=== PATIENT | female | born 1965 | race Caucasian/White ===

== ENCOUNTER 2018-03-13 07:49 | Outpatient (CLI) | payer MEDICAID, SELFPAY ==
[2018-03-13 10:46] LABS: ALT 41 U/L (12-78); AST 36 U/L (15-37); Alkaline Phosphatase 64 U/L (46-116); Anion Gap 11.6 mmol/L (3-11); BUN 11 mg/dL (7-18); Bilirubin, Total 0.8 mg/dL (0.2-1.0); CO2 25.4 mmol/L (21.0-32.0); CREATININE 1.02 mg/dL (0.55-1.02); Calcium 9.5 mg/dL (8.5-10.1); Chloride 101 mmol/L (98-107); Estimated GFR 56.47 (mL/min/1.73m2); Glucose 160 mg/dL (70-100); Potassium 4.3 mmol/L (3.5-5.1); Sodium 138 mmol/L (136-145); Total Protein 7.6 g/dL (6.4-8.2); Vitamin B12 424 pg/mL (193-986)
[2018-03-13 11:10] LABS: Hemoglobin A1C 5.5 % (4.5-6.2)
== END 2018-03-13 08:09 ==
PROVIDERS: PCP Nurse Practitioner Family
DX: F43.10 Post-traumatic stress disorder, unspecified (principal); E53.8 Deficiency of other specified B group vitamins; R00.2 Palpitations; E03.9 Hypothyroidism, unspecified; R53.83 Other fatigue; I10 Essential (primary) hypertension; R74.8 Abnormal levels of other serum enzymes; F32.9 Major depressive disorder, single episode, unspecified; R41.3 Other amnesia; R55 Syncope and collapse
CPT/HCPCS: 36415; 80053; 82607; 83036; 84443

== ENCOUNTER 2018-05-09 09:20 | Emergency (ER) | payer MEDICAID, SELFPAY ==
[2018-05-09 09:24] VITALS: BP 122/51; PULSE 81; RESP 18; TEMP 36.7; O2SAT 95
--- NOTE | 2018-05-09 09:46 | W.ED.GENAD ---
Discharge Plan Disposition Patient Disposition: HOME Condition: Good Discharge Details Chief Complaint: RespSymp Clinical Impression: Sinusitis, acute Primary Care Provider: Griselda Collier ED Provider: Oziel Feng [place] Meds and New Rx's Prescriptions: New prednisone 20 mg tablet 40 mg PO DAILY Qty: 14 RF: 0 amoxicillin-pot clavulanate [Augmentin] 875-125 mg tablet 1 tab PO BID Qty: 20 RF: 0 No Action cholecalciferol (vitamin D3) 2,000 unit capsule 2,000 unit PO DAILY Qty: 90 RF: 3 allopurinol [Zyloprim] 300 mg tablet 300 mg PO DAILY Qty: 90 RF: 4 atenolol 25 mg tablet 25 mg PO DAILY Qty: 90 RF: 3 cyanocobalamin (vitamin B-12) 1,000 mcg/mL solution 1,000 mcg Sub-Q MONTHLY Qty: 10 RF: 0 Syringe 3cc/20Gx1 3 mL 20 gauge x 1 syringe 1 ea SQ monthly Qty: 1 RF: 0 omeprazole 40 mg capsule,delayed release(DR/EC) 40 mg PO DAILY Qty: 90 RF: 4 pravastatin 40 mg tablet 40 mg PO HS Qty: 90 RF: 0 verapamil 240 mg tablet extended release 240 mg PO DAILY Qty: 90 RF: 4 trazodone 100 mg tablet 100 mg PO HS PRNRF: 0 aspirin [Ecotrin Low Strength] 81 MG tablet,delayed release (DR/EC) 81 mg PO DAILY RF: 0 indomethacin 25 MG capsule 25 mg PO TID PRNQty: 30 RF: 0 quetiapine [Seroquel] 400 MG tablet 400 mg PO HS RF: 0 levothyroxine 25 mcg tablet 37.5 mcg PO DAILY Qty: 135 RF: 0 quetiapine [Seroquel] 100 mg tablet 50 mg PO BID RF: 0 sumatriptan succinate [Imitrex] 50 mg tablet 50 mg PO q 3 days prn Qty: 9 RF: 1 Discharge Instructions Instructions: Sinusitis (ED) Additional Instructions: Please take antihistamine at night. Antihistamines from OTC can be Claritine, Zyrtec, or Benadryl. Referrals: [facility] Emergency Dept. [Outside] - Return if symptoms worsen Medical Decision Making History and exam are consistent with acute sinusitis. Will prescribe Augmentin BID and Prednisone daily. Advised to use antihistamine of her choice at night and ibuprofen for pain and swelling. Return to ED if symptoms worsen otherwise with pcp. HPI General Date/Time Provider Initiated Documentation: 05/09/18 09:26. Limitations to Documentation: no limitations. Information obtained by: patient. History of Present Illness 52 year old F presents to the emergency department with the chief complaint of sinus infection, HPI Narrative: 52 y/o female here with c/o sinus pressure, R[place], swelling, facial and ear pain, and sleep disruption. Symptoms started two weeks ago and has progressively gotten worse. Denies fever, N/V/D, cp, or SOB. Symptoms seem to be worse at night. The pressure and pain in her ears is worse and now has intermittent dizziness. Related Data Home Medications Medication Instructions Recorded Confirmed aspirin [Ecotrin Low Strength] 81 mg PO DAILY tab-cap 08/05/12 05/09/18 indomethacin 25 mg PO TID PRN #30 cap 12/06/14 05/09/18 quetiapine [Seroquel] 400 mg PO HS 11/18/16 05/09/18 allopurinol 300 mg tablet 300 mg PO DAILY #90 tab-cap 02/24/18 04/08/18 atenolol 25 mg tablet 25 mg PO DAILY #90 tab-cap 02/24/18 05/09/18 cholecalciferol (vitamin D3) 2,000 2,000 unit PO DAILY #90 cap 02/24/18 05/09/18 unit capsule cyanocobalamin (vit B-12) 1,000 1,000 mcg SUB-Q MONTHLY #10 ml 02/24/18 05/09/18 mcg/mL injection solution omeprazole 40 mg capsule,delayed 40 mg PO DAILY #90 tab-cap 02/24/18 05/09/18 release pravastatin 40 mg tablet 40 mg PO HS #90 tab 02/24/18 05/09/18 syringe with needle 3 mL 20 gauge #1 syringe 02/24/18 05/09/18 x 1 verapamil ER (SR) 240 mg 240 mg PO DAILY #90 tab-cap 02/24/18 05/09/18 tablet,extended release levothyroxine 25 mcg tablet 37.5 mcg PO DAILY #135 tab-cap 04/07/18 05/09/18 quetiapine 100 mg tablet 50 mg PO BID tab 04/08/1818 trazodone 100 mg tablet 100 mg PO HS PRN tab 18 05/09/18 sumatriptan 50 mg tablet 50 mg PO q 3 days prn #9 tab-cap 18 05/09/18 amoxicillin-pot clavulanate 1 tab PO BID #20 tab 05/09/18 [Augmentin] prednisone 40 mg PO DAILY #14 tab 05/09/18 Previous Rx's Medication Instructions Recorded allopurinol 300 mg tablet 300 mg PO DAILY #90 tab-cap 02/24/18 atenolol 25 mg tablet 25 mg PO DAILY #90 tab-cap 02/24/18 cholecalciferol (vitamin D3) 2,000 2,000 unit PO DAILY #90 cap 02/24/18 unit capsule cyanocobalamin (vit B-12) 1,000 1,000 mcg SUB-Q MONTHLY #10 ml 02/24/18 mcg/mL injection solution omeprazole 40 mg capsule,delayed 40 mg PO DAILY #90 tab-cap 02/24/18 release pravastatin 40 mg tablet 40 mg PO HS #90 tab 02/24/18 syringe with needle 3 mL 20 gauge #1 syringe 02/24/18 x 1 verapamil ER (SR) 240 mg 240 mg PO DAILY #90 tab-cap 02/24/18 tablet,extended release levothyroxine 25 mcg tablet 37.5 mcg PO DAILY #135 tab-cap 04/07/18 sumatriptan 50 mg tablet 50 mg PO q 3 days prn #9 tab-cap 05/01/18 amoxicillin-pot clavulanate 1 tab PO BID #20 tab 05/09/18 [Augmentin] prednisone 40 mg PO DAILY #14 tab 05/09/18 Allergies Allergy/AdvReac Type Severity Reaction Status Date / Time codeine [Codeine] AdvReac HALLUCINATI Verified 05/09/18 09:27 ONS General Stated Complaint: RespSymp CHERIE: 4 Review of Systems Constitutional Reports headache(s) Eyes Reports other (swelling around eyes) ENT Reports dizziness, Reports otalgia, Reports facial pain, Reports headache(s), Reports epistaxis, Reports nasal congestion, Reports nasal discharge, Reports sinus pain, Reports sinus pressure and Reports sore throat Cardiovascular Reports system reviewed and no additional complaints, except as docu Respiratory Reports system reviewed and no additional complaints, except as docu Gastrointestinal Reports system reviewed and no additional complaints, except as [facility] Genitourinary Reports system reviewed and no additional complaints, except as [facility] Musculoskeletal Reports system reviewed and no additional complaints, except as [facility] Integumentary/Breasts Reports system reviewed and no additional complaints, except as [facility] Neurologic Reports dizziness and Reports headache(s) [facility] Social History household members: other details: 2 pets and animals: Yes pets and animals: cat(s) and dog(s) Smoking/Tobacco Use Status: Never alcohol intake: current alcohol intake frequency: a few times a month substance use type: does not use Exam Const General: cooperative, comfortable, no acute distress and other (bilateral allergic shiners and looks tired) Orientation: alert, awake and oriented x3 HENMT Head: atraumatic Ears: hearing grossly normal bilaterally, external ears normal and TM abnormal bulging, dull and with loss of landmarks General nose exam: external nose normal, no nasal discharge and mucous membranes and turbinates abnormal boggy and pale Face and sinus: sinus tenderness frontal, maxillary (with swelling) and other and tenderness bilaterally Mouth: oral mucosae normal and moist mucous membranes Throat: posterior oropharynx normal Eyes General: appearance abnormal, both eyes (puffiness around the eyes and lids. ) Alignment and Position: alignment normal Eyelids: eyelid abnormality Neck Neck: normal visual inspection, full ROM, no meningeal signs, supple and lymphadenopathy Resp Effort & Inspection: normal respiratory effort and able to speak in complete sentences Auscultation: clear to auscultation bilaterally Cardio Rate: regular rate Rhythm: regular rhythm Back/Spine/Pelvis Back: No back tenderness Cervical Spine: cervical ROM normal Thoracic/Lumbar Spine: thoraco-lumbar ROM normal Skin General skin exam: no rashes or lesions noted Neuro General: alert, awake, oriented x3 and gait normal Extrem General: full ROM and normal capillary refill Psych Appearance: grossly normal Mental Status: mental status grossly normal Speech and Movement: speech and movement normal Mood: congruent mood Affect: normal affect Attitude: cooperative Course Vital Signs Temperature 36.7 C 05/09/18 09:24 Pulse 81 05/09/18 09:24 Respiratory Rate 18 05/09/18 09:24 Blood Pressure 122/51 L 05/09/18 09:24 Pulse Oximetry 95 05/09/18 09:24 Temperature 36.7 C 05/09/18 09:24 Temperature Source Temporal Artery Scan 05/09/18 09:24 Pulse 81 05/09/18 09:24 Respiratory Rate 18 05/09/18 09:24 Respiratory Effort Non-Labored 05/09/18 09:32 Respiratory Depth Normal 05/09/18 09:32 Blood Pressure 122/51 L 05/09/18 09:24 Blood Pressure Position Sitting 05/09/18 09:24 Pulse Oximetry 95 05/09/18 09:24 Oxygen Delivery Method Room Air 05/09/18 09:24 Oxygen Flow Rate 0 05/09/18 09:24 Pain Level 8 05/09/18 09:24
== END 2018-05-09 10:00 | disposition home or self-care (01) ==
PROVIDERS: Emergency Provider Nurse Practitioner Family; PCP Nurse Practitioner Family
DX: J01.90 Acute sinusitis, unspecified (principal)
CPT/HCPCS: 99283

== ENCOUNTER 2018-09-05 12:40 | Emergency (ER) | payer MEDICAID, SELFPAY ==
[2018-09-05 12:43] VITALS: BP 142/80; PULSE 75; RESP 12; TEMP 36.5; O2SAT 97
--- NOTE | 2018-09-05 12:54 | W.ED.GENAD ---
Discharge Plan Disposition Patient Disposition: HOME Condition: Good Discharge Details Chief Complaint: Urinary Clinical Impression: UTI (urinary tract infection) Primary Care Provider: Unknown,Unknown ED Provider: Mikhail Harvey Home Meds and New Rx's Prescriptions: New cephalexin [Keflex] 500 mg capsule 500 mg PO BID Qty: 14 RF: 0 No Action cholecalciferol (vitamin D3) 2,000 unit capsule 2,000 unit PO DAILY Qty: 90 RF: 3 allopurinol [Zyloprim] 300 mg tablet 300 mg PO DAILY Qty: 90 RF: 4 atenolol 25 mg tablet 25 mg PO DAILY Qty: 90 RF: 3 cyanocobalamin (vitamin B-12) 1,000 mcg/mL solution 1,000 mcg Sub-Q MONTHLY Qty: 10 RF: 0 Syringe 3cc/20Gx1 3 mL 20 gauge x 1 syringe 1 ea SQ monthly Qty: 1 RF: 0 omeprazole 40 mg capsule,delayed release(DR/EC) 40 mg PO DAILY Qty: 90 RF: 4 verapamil 240 mg tablet extended release 240 mg PO DAILY Qty: 90 RF: 4 trazodone 100 mg tablet 100 mg PO HS PRNRF: 0 aspirin [Ecotrin Low Strength] 81 MG tablet,delayed release (DR/EC) 81 mg PO DAILY RF: 0 indomethacin 25 MG capsule 25 mg PO TID PRNQty: 30 RF: 0 quetiapine [Seroquel] 400 MG tablet 400 mg PO HS RF: 0 quetiapine [Seroquel] 100 mg tablet 50 mg PO BID RF: 0 sumatriptan succinate [Imitrex] 50 mg tablet 50 mg PO q 3 days prn Qty: 9 RF: 1 pravastatin 40 mg tablet 40 mg PO HS Qty: 90 RF: 4 levothyroxine 25 mcg tablet 37.5 mcg PO DAILY Qty: 135 RF: 4 prednisone 20 mg tablet 40 mg PO DAILY Qty: 14 RF: 0 amoxicillin-pot clavulanate [Augmentin] 875-125 mg tablet 1 tab PO BID Qty: 20 RF: 0 Discharge Instructions Instructions: Urinary Tract Infection in Women (ED) Additional Instructions: Please take the antibiotic as directed. Please drink plenty of water and cranberry juice throughout the day. If you notice any worsening of your symptoms, or any new symptoms such as vomiting, diarrhea, fever, chills, shortness of breath, chest pain, numbness, weakness, or fainting , please return immediately to the emergency department for reevaluation. Please follow up with your primary care provider as soon as possible for reassessment and reevaluation. As always, it was a pleasure participating in your medical care today. Medical Decision Making This is a pleasant 53-year-old female who presents today for signs and symptoms concerning for urinary tract infection. Symptoms began this morning, she has no associated hematuria. No vaginal discharge or abdominal pain. Vital signs are notably reassuring with no tachycardia or fever. No clinical evidence of pyelonephritis. Will obtain a UA, evaluate for infection and treat as needed. 1:16 PM Patient's urinalysis shows evidence of urinary tract infection, no clinical evidence of pyelonephritis or kidney stone, no significant hematuria. Patient will be given a prescription for Keflex. I have extensively reviewed the treatment plan and discharge instructions with the patient. I have addressed all patient concerns at this time. The patient was made aware of what symptoms to monitor for that would warrant a return to the emergency department. Discussed the plan with the patient, they demonstrate verbal understanding and agreement with our assessment and plan at this time. HPI General Date/Time Provider Initiated Documentation: 09/05/18 12:46. HPI Narrative: This is a pleasant 53-year-old female with no significant past medical history except for hypertension, hypothyroidism, gout, who presents today for evaluation of burning/dysuria starting this morning. No aggravating or relieving factors. She denies any blood in the urine, history of kidney stones, foul odor, diarrhea, vomiting, chest pain, weakness, numbness or tingling. She did have intercourse within the last 36 hours, which she does admit to urinating after this. It was with her trusted partner, she denies any vaginal discharge or history of STDs. She is not on antibiotics. She denies any other complaints. No other modifying factors. She denies any recent surgeries, IV illicit drug use, or pertinent family history Related Data Home Medications Medication Instructions Recorded Confirmed aspirin [Ecotrin Low Strength] 81 mg PO DAILY tab-cap 08/05/12 05/09/18 indomethacin 25 mg PO TID PRN #30 cap 12/06/14 05/09/18 quetiapine [Seroquel] 400 mg PO HS 11/18/16 05/09/18 allopurinol 300 mg tablet 300 mg PO DAILY #90 tab-cap 02/24/18 04/08/18 atenolol 25 mg tablet 25 mg PO DAILY #90 tab-cap 02/24/18 05/09/18 cholecalciferol (vitamin D3) 2,000 2,000 unit PO DAILY #90 cap 02/24/18 05/09/18 unit capsule cyanocobalamin (vit B-12) 1,000 1,000 mcg SUB-Q MONTHLY #10 ml 02/24/18 05/09/18 mcg/mL injection solution omeprazole 40 mg capsule,delayed 40 mg PO DAILY #90 tab-cap 02/24/18 05/09/18 release syringe with needle 3 mL 20 gauge #1 syringe 02/24/18 05/09/18 x 1 verapamil ER (SR) 240 mg 240 mg PO DAILY #90 tab-cap 02/24/18 05/09/18 tablet,extended release quetiapine 100 mg tablet 50 mg PO BID tab 04/08/18 05/09/18 trazodone 100 mg tablet 100 mg PO HS PRN tab 04/08/18 05/09/18 amoxicillin-pot clavulanate 1 tab PO BID #20 tab 05/09/18 [Augmentin] prednisone 40 mg PO DAILY #14 tab 05/09/18 sumatriptan 50 mg tablet 50 mg PO q 3 days prn #9 tab-cap 07/02/18 pravastatin 40 mg tablet 40 mg PO HS #90 tab 07/03/18 levothyroxine 25 mcg tablet 37.5 mcg PO DAILY #135 tab-cap 07/07/18 cephalexin [Keflex] 500 mg PO BID #14 cap 09/05/18 Previous Rx's Medication Instructions Recorded allopurinol 300 mg tablet 300 mg PO DAILY #90 tab-cap 02/24/18 atenolol 25 mg tablet 25 mg PO DAILY #90 tab-cap 02/24/18 cholecalciferol (vitamin D3) 2,000 2,000 unit PO DAILY #90 cap 02/24/18 unit capsule cyanocobalamin (vit B-12) 1,000 1,000 mcg SUB-Q MONTHLY #10 ml 02/24/18 mcg/mL injection solution omeprazole 40 mg capsule,delayed 40 mg PO DAILY #90 tab-cap 02/24/18 release syringe with needle 3 mL 20 gauge #1 syringe 02/24/18 x 1 verapamil ER (SR) 240 mg 240 mg PO DAILY #90 tab-cap 02/24/18 tablet,extended release amoxicillin-pot clavulanate 1 tab PO BID #20 tab 05/09/18 [Augmentin] prednisone 40 mg PO DAILY #14 tab 05/09/18 sumatriptan 50 mg tablet 50 mg PO q 3 days prn #9 tab-cap 07/02/18 pravastatin 40 mg tablet 40 mg PO HS #90 tab 07/03/18 levothyroxine 25 mcg tablet 37.5 mcg PO DAILY #135 tab-cap 07/07/18 cephalexin [Keflex] 500 mg PO BID #14 cap 09/05/18 Allergies Allergy/AdvReac Type Severity Reaction Status Date / Time codeine [Codeine] AdvReac HALLUCINATI Verified 09/05/18 12:47 ONS General Stated Complaint: Urinary CHERIE: 3 Review of Systems Review of Systems All systems reviewed & are unremarkable except as noted in HPI and below PFSH Social History Smoking/Tobacco Use Status: Never Alcohol Intake: current Alcohol Intake frequency: a few times a month Drug use: Never Substance use type: does not use Household members: other Details: 2 Pets and animals: Yes Pets and animals: cat(s) and dog(s) What type of physical activity do you participate in: none Do you feel safe at home: Yes Do you feel safe in your relationship?: Yes Exam Narrative Exam Narrative: 1.Const: Well-nourished, Well-developed, appearing stated age 2.Eyes: PERRL, no conjunctival injection, and symmetrical lids. 3.ENT: Atraumatic external nose and ears. Moist MM. Neck: Symmetric, trachea midline, No thyromegaly. 4.CVS: +S1/S2, No murmurs or gallops. Peripheral pulses 2+ and equal in all extremities. Brisk capillary refill in all extremities. 5.RESP: Unlabored respiratory effort. Clear to auscultation bilaterally. No wheezes rales or rhonchi 6.GI: Soft, Nontender/Nondistended, No hepatosplenomegaly. No guarding or rebound. No flank or CVA tenderness. No abdominal tenderness on exam. 7.MSK: Normocephalic/Atraumatic, Extremities w/o deformity or ttp No cyanosis or clubbing, Normal movement of all extremities 8.Skin: Warm, Dry. No rashes or lesions. 9.Neuro: [employer] II-XII grossly intact. Sensation grossly intact, no focal neurologic deficits. 10.Psych: (AAO) x3. Appropriate mood and affect Course Vital Signs Temperature 36.5 C 09/05/18 12:43 Pulse 75 09/05/18 12:43 Respiratory Rate 12 09/05/18 12:43 Blood Pressure 142/80 H 09/05/18 12:43 Pulse Oximetry 97 09/05/18 12:43 Temperature 36.5 C 09/05/18 12:43 Temperature Source Temporal Artery Scan 09/05/18 12:43 Pulse 75 09/05/18 12:43 Respiratory Rate 12 09/05/18 12:43 Respiratory Effort Non-Labored 09/05/18 12:46 Blood Pressure 142/80 H 09/05/18 12:43 Blood Pressure Position Sitting 09/05/18 12:43 Pulse Oximetry 97 09/05/18 12:43 Oxygen Delivery Method Room Air 09/05/18 12:43 Oxygen Flow Rate 0 09/05/18 12:43 Pain Level 5 09/05/18 12:46
[2018-09-05 12:59] LABS: Bilirubin Negative (Negative); Blood Small (Negative); Clarity Clear; Glucose Negative (Negative); Ketones Negative (Negative); Leukocyte Esterase Small (Negative); Nitrite Negative (Negative); Urobilinogen 0.2 EU/dL (Up TO 0.2); pH 5.5 (5-8)
[2018-09-05 13:13] LABS: Bacteria Few HPF (Negative); C & S Indicated? No/Sq. Contamination; Casts Negative LPF (Negative); Crystals Negative HPF (Negative); Epithelial Cells Many HPF (Negative); Mucus Negative (Negative); WBC 20-50 HPF (0-5)
== END 2018-09-05 13:23 | disposition home or self-care (01) ==
PROVIDERS: Emergency Provider Student in an Organized Health Care Education/Training Program
DX: N39.0 Urinary tract infection, site not specified (principal); I10 Essential (primary) hypertension
CPT/HCPCS: 99283; 81003; 81015

== ENCOUNTER 2018-10-05 14:29 | Outpatient (REF) | payer MEDICAID, SELFPAY ==
[2018-10-05 19:22] LABS: Abs Immature Grans 0.01 k/cumm (0.0-0.09); Absolute Basophil Count 0.08 k/cumm (0.0-0.2); Absolute Eosinophil Count 0.36 k/cumm (0.0-0.7); Absolute Monocyte Count 0.52 k/cumm (0.11-0.7); Absolute Neutrophil Count 2.77 k/cumm (1.2-6.7); Basophils % 1.5; Eosinophils % 6.6; HCT 36.4 % (36.0-46.0); HGB 12.3 g/dL (12.0-15.5); Immature Grans % 0.2; Lymphocytes % 31.3; Mean Corp. HGB Concentration 33.8 g/dL (32.0-36.0); Mean Corpuscular Hemoglobin 33.3 pg (27.0-33.0); Mean Corpuscular Volume 98.6 fL (80-95); Mean Platelet Volume 10.1 fL (8.0-11.0); Monocytes % 9.6; Neutrophils % 50.8; Platelet Count 250 x1000/uL (130-400); RBC 3.69 m/cumm (4.00-5.20); RBC Distribution Width 13.5 % (11.7-14.6); White Blood Cell Count 5.44 k/cumm (4.4-10.8)
[2018-10-05 19:47] LABS: ALT 78 U/L (12-78); AST 61 U/L (15-37); Albumin 4.2 g/dL (3.4-5.0); Alkaline Phosphatase 67 U/L (46-116); Anion Gap 11.4 mmol/L (3-11); BUN 9 mg/dL (7-18); Bilirubin, Total 0.5 mg/dL (0.2-1.0); CO2 25.6 mmol/L (21.0-32.0); CREATININE 0.89 mg/dL (0.55-1.02); Calcium 9.6 mg/dL (8.5-10.1); Chloride 102 mmol/L (98-107); Glucose 91 mg/dL (70-100); Potassium 4.2 mmol/L (3.5-5.1); Sodium 139 mmol/L (136-145); TSH (W/Ref FT4) 2.05 uIU/mL (0.358-3.74); Total Protein 7.6 g/dL (6.4-8.2)
== END 2018-10-05 14:49 ==
LOC: NCHCN 14:29
PROVIDERS: Visit Provider Nurse Practitioner Family
DX: E53.8 Deficiency of other specified B group vitamins (principal); E03.9 Hypothyroidism, unspecified; I10 Essential (primary) hypertension
CPT/HCPCS: 80053; 84443; 85025

== ENCOUNTER 2018-12-04 01:24 | Outpatient (CLI) | payer MEDICAID, SELFPAY ==
--- NOTE | 2018-12-04 14:00 | DI.US_ITS ---
SYMPTOMS/DIAGNOSIS: ENLARGED THYROID, E04.9 THYROID ULTRASOUND: Routine examination was performed. The left lobe measures 4.2 x 1.2 x 1.3 cm. There is a 0.6 x 0.5 x 0.5 cm cystic avascular nodule in the upper pole. There is a well-circumscribed isoechoic nodule in the lower pole of the left lobe. It measures 1 x 1 x 1 cm. There is no internal blood flow, echogenic foci to suggest calcification. These nodules show no definite malignant characteristics. The right lobe of the thyroid gland measures 4.6 x 1.4 x 1.5 cm. There is a mixed cystic and solid nodule in the lower pole measuring 1.6 x 1.1 x 1.9 cm. No echogenic foci are seen internally to suggest calcification. There is no internal blood flow. The nodule is fairly well defined. The isthmus is within normal limits. IMPRESSION: A 1.9 cm mixed cystic and solid nodule in the inferior pole of the right lobe of the thyroid gland. Followup of this nodule is recommended. Fine needle aspiration should be considered.
--- NOTE | 2018-12-04 14:40 | DI.MAMMO_ITS ---
SYMPTOM/DIAGNOSIS: SCREENING, Z12.31, FAMILY HISTORY OF BREAST CA IN MOTHER MAMMOGRAMS: Mammograms were interpreted according to the usual protocol including computer analysis with CAD system, tomosynthesis and C view imaging. Comparison is with the prior examinations. No suspicious masses or microcalcifications are seen. There is focal asymmetric breast tissue in the upper right breast seen on the mediolateral oblique view. This area should be further evaluated with spot compression view. Ultrasound may be indicated at that time. IMPRESSION: Additional views of the right breast as described above. Category 0, breast density B. MQSA ASSESSMENT OF FINDINGS: Incomplete: Needs additional imaging evaluation. Category 0. Patient will receive a letter notifying them of these results. BI-RADS category B. There are scattered areas of fibroglandular density.
== END 2018-12-04 01:44 ==
PROVIDERS: Visit Provider Nurse Practitioner Family
DX: E04.9 Nontoxic goiter, unspecified (principal); E04.2 Nontoxic multinodular goiter; Z12.31 Encounter for screening mammogram for malignant neoplasm of breast; Z80.3 Family history of malignant neoplasm of breast; R92.8 Other abnormal and inconclusive findings on diagnostic imaging of breast
CPT/HCPCS: 77063; 77067; 76536

== ENCOUNTER 2018-12-10 01:07 | Outpatient (CLI) | payer MEDICAID, SELFPAY ==
--- NOTE | 2018-12-10 14:30 | DI.COMBO_ITS ---
SYMPTOM/DIAGNOSIS: F/U ASYMMETRIC BREAST TISSUE ON MAMMO RIGHT BREAST ADDITIONAL VIEWS AND RIGHT BREAST ULTRASOUND: Additional images are interpreted according to the usual protocol including tomosynthesis and 2D imaging. Mediolateral compression spot film of the right breast reveals nonspecific fibroglandular densities. There is no discrete mass. At ultrasound, in the 11 o'clock position, there is a 5 by 3 by 5 mm., well circumscribed area of nodularity. Also an adjacent small area of nodularity measures 6 by 3 by 4 mm. Both of these regions are avascular. IMPRESSION: Small areas of nodularity are demonstrated in the right breast as described above and could represent small fibroadenomata. Follow up evaluation of this patient with repeat mammograms and ultrasound of the right breast in 6 months is recommended. Category 3. MQSA ASSESSMENT OF FINDINGS: Probably benign. Six month follow-up recommended. Category 3. Patient will receive a letter notifying them of these results. BI-RADS category B. There are scattered areas of fibroglandular density.
== END 2018-12-10 01:27 ==
PROVIDERS: Visit Provider Nurse Practitioner Family
DX: Z12.31 Encounter for screening mammogram for malignant neoplasm of breast (principal); R92.8 Other abnormal and inconclusive findings on diagnostic imaging of breast; N63.11 Unspecified lump in the right breast, upper outer quadrant; D24.1 Benign neoplasm of right breast
CPT/HCPCS: 76642; 77063; 77067

== ENCOUNTER 2018-12-10 10:13 | Emergency (ER) | payer MEDICAID, SELFPAY ==
[2018-12-10 10:18] VITALS: BP 135/81; PULSE 81; RESP 18; TEMP 36.7; O2SAT 95
--- NOTE | 2018-12-10 10:40 | ED.GENADUL_ITS ---
Discharge Plan Disposition Patient Disposition: HOME Condition: Stable Discharge Details Chief Complaint: Nk/Back Pain Clinical Impression: Acute lumbar myofascial strain Primary Care Provider: None,None ED Provider: Marli Barlow Home Meds and New Rx's Prescriptions: New ibuprofen 600 mg tablet 600 mg PO Q6H PRN (Reason: pain) Qty: 20 RF: 0 methocarbamol 750 mg tablet 750 mg PO QID PRN (Reason: muscle spasm) Qty: 10 RF: 0 Continued cholecalciferol (vitamin D3) 2,000 unit capsule 2,000 unit PO DAILY Qty: 90 RF: 3 allopurinol [Zyloprim] 300 mg tablet 300 mg PO DAILY Qty: 90 RF: 4 atenolol 25 mg tablet 25 mg PO DAILY Qty: 90 RF: 3 cyanocobalamin (vitamin B-12) 1,000 mcg/mL solution 1,000 mcg Sub-Q MONTHLY Qty: 10 RF: 0 (DME) Syringe 3cc/20Gx1 3 mL 20 gauge x 1 syringe 1 ea SQ monthly Qty: 1 RF: 0 omeprazole 40 mg capsule,delayed release(DR/EC) 40 mg PO DAILY Qty: 90 RF: 4 verapamil 240 mg tablet extended release 240 mg PO DAILY Qty: 90 RF: 4 trazodone 100 mg tablet 100 mg PO HS PRNRF: 0 aspirin [Ecotrin Low Strength] 81 MG tablet,delayed release (DR/EC) 81 mg PO DAILY RF: 0 indomethacin 25 MG capsule 25 mg PO TID PRNQty: 30 RF: 0 quetiapine [Seroquel] 400 MG tablet 400 mg PO HS RF: 0 quetiapine [Seroquel] 100 mg tablet 50 mg PO BID RF: 0 sumatriptan succinate [Imitrex] 50 mg tablet 50 mg PO q 3 days prn Qty: 9 RF: 1 pravastatin 40 mg tablet 40 mg PO HS Qty: 90 RF: 4 levothyroxine 25 mcg tablet 37.5 mcg PO DAILY Qty: 135 RF: 4 prednisone 20 mg tablet 40 mg PO DAILY Qty: 14 RF: 0 amoxicillin-pot clavulanate [Augmentin] 875-125 mg tablet 1 tab PO BID Qty: 20 RF: 0 cephalexin [Keflex] 500 mg capsule 500 mg PO BID Qty: 14 RF: 0 Discharge Instructions Instructions: Low Back Strain (ED) Additional Instructions: Alternate ice and heat to the affected area several times daily for 20 minutes at a time. Alternate Tylenol and Motrin as needed directed for pain. Take the muscle relaxers as needed and directed. Follow-up with your primary care doctor next week for re-evaluation. Return immediately to the emergency department if you develop any worsening or new concerning symptoms. Discharge Data Discharge Physician: Marli Barlow Medical Decision Making 1020 --53-year-old female who presents with midline lower back pain that started after bending forward to scoop up dog food prior to arrival. No cauda equina symptoms. No chest or abdominal pain. She has localized tenderness to palpation of her midline and bilateral lumbar paraspinal region. No evidence of rash, infection or trauma. She is neurovascularly intact. Appears consistent with lumbar strain. With no neurologic or radicular symptoms, doubt disc herniation. History and presentation not consistent with any acute cardiac, abdominal or pathology. Will give a dose of Toradol IM and Valium p.o. and reassess. 1115 --patient feels much better and is requesting to go home. We will send home with muscle relaxers and ibuprofen. She is instructed to alternate ice and heat. She is instructed to follow-up with her primary care doctor for reevaluation and for referral to physical therapy or for possible steroids if symptoms do not improve or worsen. She is instructed to return here if worse. Medical Records Medical records reviewed: Yes I reviewed the patient's medical records. HPI General Mode of arrival: ambulatory . Date/Time Provider Initiated Documentation: 12/10/18 10:15 . Limitations to Documentation: no limitations . Information obtained by: patient . HPI Narrative: Patient is a 53-year-old female presents with lower back pain that started suddenly today when bending forward to scoop of dog food from a bag. She states the pain is in her middle lower back and radiating out to the sides. She denies any radiation of pain into her buttocks or legs. She denies any leg weakness or numbness, bowel or bladder incontinence, saddle anesthesia, abdominal pain. She took 4 Tylenol prior to arrival without relief. She denies any vomiting, chest or abdominal pain or shortness of breath. Related Data Home Medications Medication Instructions Recorded Confirmed aspirin [Ecotrin Low Strength] 81 mg PO DAILY tab-cap 08/05/12 05/09/18 indomethacin 25 mg PO TID PRN #30 cap 12/06/14 05/09/18 quetiapine [Seroquel] 400 mg PO HS 11/18/16 05/09/18 allopurinol 300 mg tablet 300 mg PO DAILY #90 tab-cap 02/24/18 04/08/18 atenolol 25 mg tablet 25 mg PO DAILY #90 tab-cap 02/24/18 05/09/18 cholecalciferol (vitamin D3) 2,000 2,000 unit PO DAILY #90 cap 02/24/18 05/09/18 unit capsule cyanocobalamin (vitamin B-12) 1,000 mcg SUB-Q MONTHLY #10 ml 02/24/18 05/09/18 1,000 mcg/mL injection solution omeprazole 40 mg capsule,delayed 40 mg PO DAILY #90 tab-cap 02/24/18 05/09/18 release syringe with needle 3 mL 20 gauge #1 syringe 02/24/18 05/09/18 x 1 verapamil 240 mg tablet,extended 240 mg PO DAILY #90 tab-cap 02/24/18 05/09/18 release quetiapine 100 mg tablet 50 mg PO BID tab 04/08/18 05/09/18 trazodone 100 mg tablet 100 mg PO HS PRN tab 04/08/18 05/09/18 amoxicillin-pot clavulanate 1 tab PO BID #20 tab 05/09/18 [Augmentin] prednisone 40 mg PO DAILY #14 tab 05/09/18 sumatriptan succinate 50 mg tablet 50 mg PO q 3 days prn #9 tab-cap 07/02/18 pravastatin 40 mg tablet 40 mg PO HS #90 tab 07/03/18 levothyroxine 25 mcg tablet 37.5 mcg PO DAILY #135 tab-cap 07/07/18 cephalexin [Keflex] 500 mg PO BID #14 cap 09/05/18 ibuprofen 600 mg PO Q6H PRN #20 tab 12/10/18 methocarbamol 750 mg PO QID PRN #10 tab 12/10/18 Previous Rx's Medication Instructions Recorded allopurinol 300 mg tablet 300 mg PO DAILY #90 tab-cap 02/24/18 atenolol 25 mg tablet 25 mg PO DAILY #90 tab-cap 02/24/18 cholecalciferol (vitamin D3) 2,000 2,000 unit PO DAILY #90 cap 02/24/18 unit capsule cyanocobalamin (vitamin B-12) 1,000 mcg SUB-Q MONTHLY #10 ml 02/24/18 1,000 mcg/mL injection solution omeprazole 40 mg capsule,delayed 40 mg PO DAILY #90 tab-cap 02/24/18 release syringe with needle 3 mL 20 gauge #1 syringe 02/24/18 x 1 verapamil 240 mg tablet,extended 240 mg PO DAILY #90 tab-cap 02/24/18 release amoxicillin-pot clavulanate 1 tab PO BID #20 tab 05/09/18 [Augmentin] prednisone 40 mg PO DAILY #14 tab 05/09/18 sumatriptan succinate 50 mg tablet 50 mg PO q 3 days prn #9 tab-cap 07/02/18 pravastatin 40 mg tablet 40 mg PO HS #90 tab 07/03/18 levothyroxine 25 mcg tablet 37.5 mcg PO DAILY #135 tab-cap 07/07/18 cephalexin [Keflex] 500 mg PO BID #14 cap 09/05/18 ibuprofen 600 mg PO Q6H PRN #20 tab 12/10/18 methocarbamol 750 mg PO QID PRN #10 tab 12/10/18 Allergies Allergy/AdvReac Type Severity Reaction Status Date / Time codeine [Codeine] AdvReac HALLUCINATI Verified 09/05/18 12:47 ONS General Stated Complaint: Nk/Back Pain CHERIE: 4 Review of Systems Review of Systems All systems reviewed & are unremarkable except as noted in HPI and below Constitutional Reports as per HPI, Denies chills and Denies fever(s) Eyes Denies blurry vision ENT Denies dizziness, Denies sore throat and Denies throat swelling Cardiovascular Denies chest pain and Denies dyspnea Respiratory Denies cough and Denies dyspnea Gastrointestinal Denies abdominal pain, Denies diarrhea and Denies vomiting Genitourinary Denies hematuria and Denies dysuria Musculoskeletal Reports back pain and Denies numbness Integumentary/Breasts Denies lesions and Denies rash Neurologic Denies dizziness, Denies focal weakness and Denies numbness Allergic/Immunologic Denies throat swelling PFSH Medical History HTN (hypertension) Hypothyroidism Syncope Surgical History Hysterectomy, Laproscopic Family History Mother Diabetes Essential hypertension Atrial fibrillation Hyperlipidemia Neoplasm Father Essential hypertension Hyperlipidemia Sister Essential hypertension Hyperlipidemia Brother Essential hypertension Hyperlipidemia Grandfather Heart disease Neoplasm Stroke Grandfather Heart disease Grandmother Diabetes Heart disease Stroke Grandmother Essential hypertension Hyperlipidemia Social History Smoking/Tobacco Use Status: Never Alcohol Intake: current Alcohol Intake frequency: a few times a month Drug use: Never Substance use type: does not use Household members: other Details: 2 Pets and animals: Yes Pets and animals: cat(s) and dog(s) What type of physical activity do you participate in: none Do you feel safe at home: Yes Do you feel safe in your relationship?: Yes Exam Const General: cooperative, healthy appearing and no acute distress HENMT Head: normal to inspection Face and sinus: normal facial exam Eyes General: appearance normal, both eyes and all related structures Pupils: PERRL EOM: EOM intact bilaterally Neck Neck: normal visual inspection and No submandibular swelling Lymphatic: no lymphadenopathy noted Chest Chest: normal inspection of the chest and no tenderness Resp Effort & Inspection: normal respiratory effort and able to speak in complete sentences Auscultation: clear to auscultation bilaterally Cardio Rate: regular rate Rhythm: regular rhythm GI Inspection: normal to inspection Palpation: soft, not firm, not rigid and nontender Auscultation: normal bowel sounds Back/Spine/Pelvis Thoracic/Lumbar Spine: thoracic and lumbar spine normal to inspection, straight leg raise negative bilaterally, paraspinal tenderness (b/l lumbar) and lumbar spinal tenderness Pelvis: no pain with anterior-posterior compression Back/spine/pelvis image: 1. Localized area of tenderness to palpation. No evidence of rash, trauma, open wounds. No step-off deformity Skin General skin exam: no rashes or lesions noted Neuro General: alert, awake and oriented x3 Cognition: normal cognition Speech: speech normal Motor: muscle tone normal throughout and strength 5/5 throughout Sensory Exam: no sensory deficits noted DTR's: Rt Patellar: 1+, Lt Patellar: 1+, Rt Ankle: 1+ and Lt Ankle: 1+ Plantar Reflexes: Equivocal: bilateral Extrem General: normal to inspection, full ROM, normal capillary refill, no calf tenderness bilaterally and no edema Psych Appearance: grossly normal Mental Status: mental status grossly normal Speech and Movement: speech and movement normal Affect: normal affect Course Vital Signs Temperature 98.1 F 12/10/18 10:18 Pulse 81 12/10/18 10:18 Respiratory Rate 18 12/10/18 10:18 Blood Pressure 135/81 12/10/18 10:18 Pulse Oximetry 95 12/10/18 10:18 Temperature 98.1 F 12/10/18 10:18 Temperature Source Skin 12/10/18 10:18 Pulse 81 12/10/18 10:18 Respiratory Rate 18 12/10/18 10:18 Respiratory Effort Non-Labored 12/10/18 10:18 Blood Pressure 135/81 12/10/18 10:18 Blood Pressure Position Sitting 12/10/18 10:18 Pulse Oximetry 95 12/10/18 10:18 Oxygen Delivery Method Room Air 12/10/18 10:18 Oxygen Flow Rate 0 12/10/18 10:18 Pain Level 10 12/10/18 10:22
[2018-12-10] MEDS: Ketorolac 60 MG/2 ML VIAL IM (10:54)
[2018-12-10] MEDS: diazePAM 5 MG TAB PO (10:54)
[2018-12-10 11:10] VITALS: BP 122/67; PULSE 78; RESP 16; O2SAT 97
== END 2018-12-10 11:13 | disposition home or self-care (01) ==
PROVIDERS: Emergency Provider Physician Assistant
DX: X50.9XXA Other and unspecified overexertion or strenuous movements or postures, initial encounter (principal); S39.012A Strain of muscle, fascia and tendon of lower back, initial encounter; I10 Essential (primary) hypertension; Z12.31 Encounter for screening mammogram for malignant neoplasm of breast; R92.8 Other abnormal and inconclusive findings on diagnostic imaging of breast; N63.11 Unspecified lump in the right breast, upper outer quadrant; D24.1 Benign neoplasm of right breast
CPT/HCPCS: 76642; 77063; 77067; 96372; 99284; J1885

== ENCOUNTER 2018-12-13 11:57 | Emergency (ER) | payer MEDICAID, SELFPAY ==
[2018-12-13 12:02] VITALS: BP 102/63; RESP 16; TEMP 36.1; O2SAT 98
--- NOTE | 2018-12-13 12:57 | ED.GENADUL_ITS ---
Discharge Plan Disposition Patient Disposition: HOME Condition: Stable Discharge Details Chief Complaint: Nk/Back Pain Clinical Impression: Low back pain Primary Care Provider: Brooks Pemberton ED Provider: Marcus Martinez Home Meds and New Rx's Prescriptions: New cyclobenzaprine 10 mg tablet 10 mg PO Q8H PRN (Reason: muscle spasm) Qty: 10 RF: 0 ibuprofen 600 mg tablet 600 mg PO Q8H MDD 1800mg PRN (Reason: pain) Qty: 30 RF: 0 LidoPure Patch 5 % combo pack 1 patch TP DAILY Qty: 60 RF: 0 acetaminophen [Pain and Fever] 500 mg tablet 500 mg PO .Q8 PRN (Reason: pain) Qty: 60 RF: 0 No Action cholecalciferol (vitamin D3) 2,000 unit capsule 2,000 unit PO DAILY Qty: 90 RF: 3 atenolol 25 mg tablet 25 mg PO DAILY Qty: 90 RF: 3 cyanocobalamin (vitamin B-12) 1,000 mcg/mL solution 1,000 mcg Sub-Q MONTHLY Qty: 10 RF: 0 (DME) Syringe 3cc/20Gx1 3 mL 20 gauge x 1 syringe 1 ea SQ monthly Qty: 1 RF: 0 omeprazole 40 mg capsule,delayed release(DR/EC) 40 mg PO DAILY Qty: 90 RF: 4 verapamil 240 mg tablet extended release 240 mg PO DAILY Qty: 90 RF: 4 aspirin [Ecotrin Low Strength] 81 MG tablet,delayed release (DR/EC) 81 mg PO DAILY RF: 0 indomethacin 25 MG capsule 25 mg PO TID PRNQty: 30 RF: 0 quetiapine [Seroquel] 400 MG tablet 400 mg PO HS RF: 0 quetiapine [Seroquel] 100 mg tablet 50 mg PO BID RF: 0 sumatriptan succinate [Imitrex] 50 mg tablet 50 mg PO q 3 days prn Qty: 9 RF: 1 pravastatin 40 mg tablet 40 mg PO HS Qty: 90 RF: 4 levothyroxine 25 mcg tablet 37.5 mcg PO DAILY Qty: 135 RF: 4 ibuprofen 600 mg tablet 600 mg PO Q6H PRN (Reason: pain) Qty: 20 RF: 0 methocarbamol 750 mg tablet 750 mg PO QID PRN (Reason: muscle spasm) Qty: 10 RF: 0 Discharge Instructions Instructions: Low Back Strain (ED) Discharge Data Discharge Date/Time-TO BE ENTERED AT DEPARTURE: 12/13/18 13:35 Medical Decision Making 53-year-old female with acute lower back pain without red flags no evidence of infection cord compression or acute medical process discussed the natural course of acute back pain waxing waning prognosis long-term the need for primary care follow-up and likely physical therapy referral. Today we will change pain regime to a combination of Tylenol and ibuprofen and Lidoderm patches with muscle relaxant Flexeril for breakthrough pain discussed that this should improve the pain but may not completely be eliminated and the patient should return for fever focal weakness urinary incontinence or other change in sensation or concern. HPI 53-year-old female with acute low back pain that began after picking up some dog food a few days ago patient seen in the ER at that time no red flags for acute back pain started on muscle relaxants and anti-inflammatory medications without improvement. Patient returns for discharge instructions complaining of pain and asking for repeat assessment and possible new treatment modalities. Patient without red flags no shortness of breath no chest pain no nausea vomiting diarrhea loss of consciousness fever chills or trauma. No focal weakness no change in sensation no bowel or bladder incontinence. No history of immunosuppression no IVDU. General Date/Time Provider Initiated Documentation: 12/13/18 12:26 . Related Data Home Medications Medication Instructions Recorded Confirmed aspirin [Ecotrin Low Strength] 81 mg PO DAILY tab-cap 08/05/12 12/13/18 indomethacin 25 mg PO TID PRN #30 cap 12/06/14 12/13/18 quetiapine [Seroquel] 400 mg PO HS 11/18/16 12/13/18 atenolol 25 mg tablet 25 mg PO DAILY #90 tab-cap 02/24/18 12/13/18 cholecalciferol (vitamin D3) 2,000 2,000 unit PO DAILY #90 cap 02/24/18 12/13/18 unit capsule cyanocobalamin (vitamin B-12) 1,000 mcg SUB-Q MONTHLY #10 ml 02/24/18 12/13/18 1,000 mcg/mL injection solution omeprazole 40 mg capsule,delayed 40 mg PO DAILY #90 tab-cap 02/24/18 12/13/18 release syringe with needle 3 mL 20 gauge #1 syringe 02/24/18 05/09/18 x 1 verapamil 240 mg tablet,extended 240 mg PO DAILY #90 tab-cap 02/24/18 12/13/18 release quetiapine 100 mg tablet 50 mg PO BID tab 04/08/18 12/13/18 sumatriptan succinate 50 mg tablet 50 mg PO q 3 days prn #9 tab-cap 07/02/18 12/13/18 pravastatin 40 mg tablet 40 mg PO HS #90 tab 07/03/18 12/13/18 levothyroxine 25 mcg tablet 37.5 mcg PO DAILY #135 tab-cap 07/07/18 12/13/18 ibuprofen 600 mg PO Q6H PRN #20 tab 12/10/18 12/13/18 methocarbamol 750 mg PO QID PRN #10 tab 12/10/18 12/13/18 acetaminophen [Pain and Fever] 500 mg PO .Q8 PRN #60 tab 12/13/18 cyclobenzaprine 10 mg PO Q8H PRN #10 tab 12/13/18 ibuprofen 600 mg PO Q8H PRN #30 tab MDD 12/13/18 1800mg lidocaine-kinesiology tape 1 patch TP DAILY #60 each 12/13/18 [LidoPure Patch] Previous Rx's Medication Instructions Recorded atenolol 25 mg tablet 25 mg PO DAILY #90 tab-cap 02/24/18 cholecalciferol (vitamin D3) 2,000 2,000 unit PO DAILY #90 cap 02/24/18 unit capsule cyanocobalamin (vitamin B-12) 1,000 mcg SUB-Q MONTHLY #10 ml 02/24/18 1,000 mcg/mL injection solution omeprazole 40 mg capsule,delayed 40 mg PO DAILY #90 tab-cap 02/24/18 release syringe with needle 3 mL 20 gauge #1 syringe 02/24/18 x 1 verapamil 240 mg tablet,extended 240 mg PO DAILY #90 tab-cap 02/24/18 release sumatriptan succinate 50 mg tablet 50 mg PO q 3 days prn #9 tab-cap 07/02/18 pravastatin 40 mg tablet 40 mg PO HS #90 tab 07/03/18 levothyroxine 25 mcg tablet 37.5 mcg PO DAILY #135 tab-cap 07/07/18 ibuprofen 600 mg PO Q6H PRN #20 tab 12/10/18 methocarbamol 750 mg PO QID PRN #10 tab 12/10/18 acetaminophen [Pain and Fever] 500 mg PO .Q8 PRN #60 tab 12/13/18 cyclobenzaprine 10 mg PO Q8H PRN #10 tab 12/13/18 ibuprofen 600 mg PO Q8H PRN #30 tab MDD 12/13/18 1800mg lidocaine-kinesiology tape 1 patch TP DAILY #60 each 12/13/18 [LidoPure Patch] Allergies Allergy/AdvReac Type Severity Reaction Status Date / Time codeine [Codeine] AdvReac HALLUCINATI Verified 09/05/18 12:47 ONS General Stated Complaint: Nk/Back Pain CHERIE: 4 Review of Systems Review of Systems All systems reviewed & are unremarkable except as noted in HPI and below PFSH Social History Smoking/Tobacco Use Status: Never Alcohol Intake: current Alcohol Intake frequency: a few times a month Drug use: Never Substance use type: does not use Household members: other Details: 2 Pets and animals: Yes Pets and animals: cat(s) and dog(s) What type of physical activity do you participate in: none Do you feel safe at home: Yes Do you feel safe in your relationship?: Yes Exam Narrative Exam Narrative: Full range of motion normal plantar flexion extension normal distal lower extremity neurovascular exam normal patellar reflexes mild pain to palpation diffusely across lower lumbar back around L3 no skin changes no rash no vesicular lesions abdomen soft nontender Const General: cooperative, healthy appearing, no acute distress, well developed and well groomed Nutritional Appearance: well nourished Orientation: alert, awake and oriented x3 HENMT Head: normal to inspection, normocephalic and atraumatic Ears: hearing grossly normal bilaterally and external ears normal General nose exam: external nose normal Face and sinus: normal facial exam Mouth: oral mucosae normal and lip normal Chest Chest: normal inspection of the chest Resp Effort & Inspection: normal respiratory effort and able to speak in complete sentences Cardio Jugular venous pressure: no JVD Rate: regular rate GI Inspection: normal to inspection Palpation: soft, firm and guarding Percussion: normal to percussion Skin General skin exam: no rashes or lesions noted Lesions: no lesions Rashes: no rashes Trauma: no lacerations or abrasions Neuro General: alert, awake and oriented x3 Cognition: normal cognition Motor: muscle tone normal throughout Sensory Exam: no sensory deficits noted Extrem General: normal to inspection Right upper extremity: normal to inspection Left upper extremity: normal to inspection Right lower extremity: normal to inspection Left lower extremity: normal to inspection Psych Appearance: grossly normal Mental Status: mental status grossly normal Speech and Movement: speech and movement normal Course Vital Signs Temperature 36.1 C L 12/13/18 12:02 Respiratory Rate 16 12/13/18 12:02 Blood Pressure 102/63 12/13/18 12:02 Pulse Oximetry 98 12/13/18 12:02 Temperature 36.1 C L 12/13/18 12:02 Temperature Source Temporal Artery Scan 12/13/18 12:02 Respiratory Rate 16 12/13/18 12:02 Blood Pressure 102/63 12/13/18 12:02 Blood Pressure Position Supine 12/13/18 12:02 Pulse Oximetry 98 12/13/18 12:02 Oxygen Delivery Method Room Air 12/13/18 12:02 Oxygen Flow Rate 0 12/13/18 12:02
[2018-12-13] MEDS: Acetaminophen 500 MG TAB 1000 MG PO (13:29)
[2018-12-13] MEDS: Lidocaine 5% Patch 1 PATCH TP (13:30)
[2018-12-13] MEDS: Cyclobenzaprine 10 MG TAB PO (13:30)
== END 2018-12-13 13:35 | disposition home or self-care (01) ==
PROVIDERS: Emergency Provider Emergency Medicine; PCP Nurse Practitioner Family
DX: M54.5 Low back pain (principal); I10 Essential (primary) hypertension
CPT/HCPCS: 99283

== ENCOUNTER 2019-06-21 01:23 | Outpatient (CLI) | payer MEDICAID, SELFPAY ==
--- NOTE | 2019-06-21 14:40 | DI.MAMMO_ITS ---
EXAM: MG MAMMO DIAGNOSTIC UNI AND US BREAST RT COMPLETE CLINICAL HISTORY: ABNORMAL MAMMO RT BREAST R92.8, 6-MO F/U TECHNIQUE: Ultrasound performed using standard protocol. COMPARISON: US breast RT limited from 12/10/2018 and mammograms from 2014 through 2018. FINDINGS: Right mammogram: Right breast is composed of scattered fibroglandular densities, breast density categ ory B. No mass or suspicious microcalcifications are seen. Right breast ultrasound: The entire breast was scanned. Two small ovoid hypoechoic nodules are again noted in the 11 o'clock position 3 centimeters from the nipple. One measures 5 millimeters in great est dimension and the 2nd measures 6 millimeters in greatest dimension. There are no suspicious feat ures. No new cysts or suspicious masses are identified. IMPRESSION: Category 2, negative mammogram and right breast ultrasound with benign findings. Bilateral screening mammography should be resumed in 6 months. BI-RADS Cat 2 - Benign Findings Breast Density - Category B - Scattered areas of fibroglandular density
== END 2019-06-21 01:43 ==
PROVIDERS: PCP Nurse Practitioner Family; Visit Provider Nurse Practitioner Family
DX: Z12.31 Encounter for screening mammogram for malignant neoplasm of breast (principal); R92.8 Other abnormal and inconclusive findings on diagnostic imaging of breast; N60.81 Other benign mammary dysplasias of right breast
CPT/HCPCS: 76642; 77061; 77065; G0279

== ENCOUNTER 2019-12-10 13:57 | Emergency (ER) | payer MEDICAID, SELFPAY ==
[2019-12-10 14:02] VITALS: BP 129/68; PULSE 65; RESP 16; TEMP 36.6; O2SAT 97
--- NOTE | 2019-12-10 14:37 | ED.GENADUL_ITS ---
Discharge Plan Disposition Patient Disposition: HOME Condition: Stable Discharge Details Chief Complaint: DentalOral Clinical Impression: Dental infection Primary Care Provider: Brooks Pemberton ED Provider: Cesar Herr Home Meds and New Rx's Prescriptions: New amoxicillin 875 mg tablet 875 mg PO BID 10 Days Qty: 20 RF: 0 Continued cholecalciferol (vitamin D3) 2,000 unit capsule 2,000 unit PO DAILY Qty: 90 RF: 3 atenolol 25 mg tablet 25 mg PO DAILY Qty: 90 RF: 3 cyanocobalamin (vitamin B-12) 1,000 mcg/mL solution 1,000 mcg Sub-Q MONTHLY Qty: 10 RF: 0 (DME) Syringe 3cc/20Gx1 3 mL 20 gauge x 1 syringe 1 ea SQ monthly Qty: 1 RF: 0 omeprazole 40 mg capsule,delayed release(DR/EC) 40 mg PO DAILY Qty: 90 RF: 4 verapamil 240 mg tablet extended release 240 mg PO DAILY Qty: 90 RF: 4 aspirin [Ecotrin Low Strength] 81 MG tablet,delayed release (DR/EC) 81 mg PO DAILY RF: 0 indomethacin 25 MG capsule 25 mg PO TID PRNQty: 30 RF: 0 quetiapine [Seroquel] 400 MG tablet 400 mg PO HS RF: 0 quetiapine [Seroquel] 100 mg tablet 50 mg PO BID RF: 0 sumatriptan succinate [Imitrex] 50 mg tablet 50 mg PO q 3 days prn Qty: 9 RF: 1 pravastatin 40 mg tablet 40 mg PO HS Qty: 90 RF: 4 levothyroxine 25 mcg tablet 37.5 mcg PO DAILY Qty: 135 RF: 4 acetaminophen [Pain and Fever] 500 mg tablet 500 mg PO .Q8 PRN (Reason: pain) Qty: 60 RF: 0 Discharge Instructions Instructions: Dental Abscess (ED) Additional Instructions: Amoxicillin as directed. Warm compresses every 2 hours for 20 minutes. [id number] Tylenol and/or Motrin as directed for discomfort. Please watch for new or worsening symptoms and return to the ER for any concerns. I do recommend following up with a dentist at next available appointment. Medical Decision Making 54-year-old female non-smoker presents with a 1-1/2-day history of left-sided dental pain. She appears well, nontoxic. Has not taken any zodc-mxo-wqyizij medication for her symptoms. Unable to be seen by her primary care provider or dentist. Examination is consistent with a dental infection, no obvious pointing abscess for drainage. Patient was offered a dental block but declines. Will be provided a antibiotic and recommend [id number] Tylenol and/or Motrin as well as warm compresses. Recommended prompt outpatient dental follow-up. Encouraged to return to the ER for new or worsening symptoms. Patient agreeable to this plan and has no additional questions or concerns Medical Records Medical records reviewed: Yes I reviewed the patient's medical records. HPI General Mode of arrival: ambulatory . Date/Time Provider Initiated Documentation: 12/10/19 14:06 . Limitations to Documentation: no limitations . Information obtained by: patient . HPI Narrative: This is a 54-year-old female with history of hypertension, hypothyroidism, GERD, presenting to the ER today with a day and a half history of dental pain and swelling. She denies recent illness or trauma. She attempted to be seen by both her primary care provider and her dentist but both could not see her today and directed her to the ER. She has not taken any utkl-sww-koidxmi medication for her symptoms. She denies difficulty speaking, swallowing, breathing. Related Data Home Medications Medication Instructions Recorded Confirmed aspirin [Ecotrin Low Strength] 81 mg PO DAILY tab-cap 08/05/12 12/10/19 indomethacin 25 mg PO TID PRN #30 cap 12/06/14 12/10/19 quetiapine [Seroquel] 400 mg PO HS 11/18/16 12/10/19 atenolol 25 mg tablet 25 mg PO DAILY #90 tab-cap 02/24/18 12/10/19 cholecalciferol (vitamin D3) 50 2,000 unit PO DAILY #90 cap 02/24/18 12/10/19 mcg (2,000 unit) capsule cyanocobalamin (vitamin B-12) 1,000 mcg SUB-Q MONTHLY #10 ml 02/24/18 12/10/19 1,000 mcg/mL injection solution omeprazole 40 mg capsule,delayed 40 mg PO DAILY #90 tab-cap 02/24/18 12/10/19 release syringe with needle 3 mL 20 gauge #1 syringe 02/24/18 05/09/18 x 1 verapamil 240 mg tablet,extended 240 mg PO DAILY #90 tab-cap 02/24/18 12/10/19 release quetiapine 100 mg tablet 50 mg PO BID tab 04/08/18 12/10/19 sumatriptan succinate 50 mg tablet 50 mg PO q 3 days prn #9 tab-cap 07/02/18 12/10/19 pravastatin 40 mg tablet 40 mg PO HS #90 tab 07/03/18 12/10/19 levothyroxine 25 mcg tablet 37.5 mcg PO DAILY #135 tab-cap 07/07/18 12/10/19 acetaminophen [Pain and Fever] 500 mg PO .Q8 PRN #60 tab 12/13/18 12/10/19 amoxicillin 875 mg PO BID 10 Days #20 tab 12/10/19 Previous Rx's Medication Instructions Recorded atenolol 25 mg tablet 25 mg PO DAILY #90 tab-cap 02/24/18 cholecalciferol (vitamin D3) 50 2,000 unit PO DAILY #90 cap 02/24/18 mcg (2,000 unit) capsule cyanocobalamin (vitamin B-12) 1,000 mcg SUB-Q MONTHLY #10 ml 02/24/18 1,000 mcg/mL injection solution omeprazole 40 mg capsule,delayed 40 mg PO DAILY #90 tab-cap 02/24/18 release syringe with needle 3 mL 20 gauge #1 syringe 02/24/18 x 1 verapamil 240 mg tablet,extended 240 mg PO DAILY #90 tab-cap 02/24/18 release sumatriptan succinate 50 mg tablet 50 mg PO q 3 days prn #9 tab-cap 07/02/18 pravastatin 40 mg tablet 40 mg PO HS #90 tab 07/03/18 levothyroxine 25 mcg tablet 37.5 mcg PO DAILY #135 tab-cap 07/07/18 acetaminophen [Pain and Fever] 500 mg PO .Q8 PRN #60 tab 12/13/18 amoxicillin 875 mg PO BID 10 Days #20 tab 12/10/19 Allergies Allergy/AdvReac Type Severity Reaction Status Date / Time codeine [Codeine] AdvReac HALLUCINATI Verified 12/10/19 14:06 ONS General Stated Complaint: DentalOral CHERIE: 4 Review of Systems Constitutional Constitutional: Denies fever(s), Denies headache(s) and Denies weakness Eyes Eyes: Denies eye discharge ENT Ears, Nose, Mouth, and Throat: Denies otalgia, Denies headache(s) and Denies sore throat Cardiovascular Cardiovascular: Denies dyspnea Respiratory Respiratory: Denies dyspnea Musculoskeletal Musculoskeletal: Denies numbness and Denies tingling Integumentary/Breasts Skin/Breast: Denies rash Neurologic Neurologic: Denies headache(s), Denies numbness, Denies tingling and Denies weakness PFSH Medical History HTN (hypertension) Hypothyroidism Syncope Surgical History Hysterectomy, Laproscopic for endometriosis Family History Mother Diabetes Essential hypertension Atrial fibrillation Hyperlipidemia Neoplasm UTERINE/SKIN Father Essential hypertension Hyperlipidemia Sister Essential hypertension Hyperlipidemia Brother Essential hypertension Hyperlipidemia Grandfather Heart disease Neoplasm THYROID Stroke Grandfather Heart disease Grandmother Diabetes Heart disease Stroke Grandmother Essential hypertension Hyperlipidemia Social History Smoking/Tobacco Use Status: Never Alcohol Intake: current Alcohol Intake frequency: a few times a month Drug use: Never Substance use type: does not use Household members: other Details: 2 Pets and animals: Yes Pets and animals: cat(s) and dog(s) What type of physical activity do you participate in: none Do you feel safe at home: Yes Do you feel safe in your relationship?: Yes Exam Const General: cooperative, healthy appearing, comfortable and no acute distress Orientation: alert, awake and oriented x3 HENMT Head: normal to inspection, normocephalic and atraumatic Nose image: 1. Mild tenderness, no swelling or erythema. No fluctuance or induration Mouth: oral mucosae normal and moist mucous membranes Teeth image: 1. Tenderness to palpation of tooth 11. The localized buccal mucosa is slightly erythematous but no pointing abscess. Throat: posterior oropharynx normal Eyes General: appearance normal, both eyes and all related structures Eyelids: eyelids normal Conjunctivae: conjunctivae normal Sclera: sclerae normal Neck Neck: normal visual inspection, full ROM, no lymphadenopathy, trachea midline, supple and nontender Resp Effort & Inspection: normal respiratory effort and able to speak in complete sentences Cardio Rate: regular rate Rhythm: regular rhythm Skin General skin exam: no rashes or lesions noted Neuro General: patient alert, patient awake, moves all extremities and no focal motor deficits Sensory Exam: no sensory deficits noted Psych Appearance: grossly normal Mental Status: mental status grossly normal Course Vital Signs Vital signs: Vital Signs Temperature 36.6 C 12/10/19 14:02 Pulse 65 12/10/19 14:02 Respiratory Rate 16 12/10/19 14:02 Blood Pressure 129/68 12/10/19 14:02 Pulse Oximetry 97 12/10/19 14:02 Temperature 36.6 C 12/10/19 14:02 Temperature Source Skin 12/10/19 14:02 Pulse 65 12/10/19 14:02 Respiratory Rate 16 12/10/19 14:02 Respiratory Effort 12/10/19 14:10 Blood Pressure 129/68 12/10/19 14:02 Blood Pressure Position Sitting 12/10/19 14:02 Pulse Oximetry 97 12/10/19 14:02 Oxygen Delivery Method Room Air 12/10/19 14:02 Oxygen Flow Rate 0 12/10/19 14:02 Pain Level 10 12/10/19 14:02
[2019-12-10 14:44] VITALS: BP 129/68; PULSE 65; RESP 16; TEMP 36.6; O2SAT 97
== END 2019-12-10 14:45 | disposition home or self-care (01) ==
PROVIDERS: Emergency Provider Physician Assistant; PCP Nurse Practitioner Family
DX: R68.84 Jaw pain (principal); K04.7 Periapical abscess without sinus; I10 Essential (primary) hypertension
CPT/HCPCS: 99283

== ENCOUNTER 2019-12-23 00:51 | Outpatient (CLI) | payer MEDICAID, SELFPAY ==
--- NOTE | 2019-12-23 | DI.US_ITS ---
EXAM: US THYROID CLINICAL HISTORY: MULTINODULAR THYROID,E04.2. TECHNIQUE: Ultrasound thyroid performed using standard protocol. COMPARISON: US US thyroid from 12/04/2018 FINDINGS: ISTHMUS: 6 mm RIGHT LOBE: Size: 4.3 by 1.3 x 1.5 cm Echogenicity: Mildly heterogeneous.. Vascularity: Normal. Nodules: 1.8 x 1.0 x 2 cm nodule at the lower pole. It is mixed cystic and solid but nearly isoechoi c to thyroid echotexture. The margins are smooth. No echogenic foci are seen. This is consistent w ith a TI-RADS 2 lesion. LEFT LOBE: Size: 3.4 by 1.2 x 0.8 cm Echogenicity: Mildly heterogeneous Vascularity: Normal. Nodules: 5 millimeter cyst in the mid portion of the left lobe. 1.1 x 0.6 x 0.9 centimeter homogeneo us isoechoic nodule. OTHER FINDINGS: None. IMPRESSION: Multi nodular thyroid. Mild overall decrease in size of gland when compared with the previous exam. 2 centimeter nodule at the lower pole of the right, consistent with a TI-RADS 2 lesion,, benign appe arance.. DATA REPOSITORY:
== END 2019-12-23 01:11 ==
PROVIDERS: PCP Nurse Practitioner Family; Visit Provider Otolaryngology
DX: E04.2 Nontoxic multinodular goiter (principal)
CPT/HCPCS: 76536

== ENCOUNTER 2020-06-29 14:50 | Outpatient (REF) | payer MEDICAID, SELFPAY ==
[2020-06-29 14:09] LABS: ALT 60 U/L (14-59); AST 70 U/L (15-37); Albumin 4.4 g/dL (3.4-5.0); Alkaline Phosphatase 81 U/L (46-116); Anion Gap 14.8 mmol/L (3-11); BUN 10 mg/dL (7-18); Bilirubin, Total 0.7 mg/dL (0.2-1.0); CO2 24.2 mmol/L (21.0-32.0); Calcium 9.5 mg/dL (8.5-10.1); Calculated LDL 141 mg/dL (<100); Chloride 102 mmol/L (98-107); Cholesterol 276 mg/dL (<200); Estimated GFR 57.35 (mL/min/1.73m2); Glucose 142 mg/dL (74-106); HDL Cholesterol 57 mg/dL (40-60); Sodium 141 mmol/L (136-145); TSH (W/Ref FT4) 1.54 uIU/mL (0.36-3.74); Total Protein 8.4 g/dL (6.4-8.2); Triglyceride 390 mg/dL (<150)
[2020-06-29 14:11] LABS: Vitamin D 25 Total 47.8 ng/ml (30-100)
[2020-06-30 10:36] LABS: HIV-1/2 Ag & Ab Screen Negative (Negative)
[2020-06-30 10:44] LABS: Hepatitis C Ab w Rflx HCV PCR Negative (Negative)
[2020-06-30 12:56] LABS: Vitamin B12 280 pg/mL (193-986)
[2020-06-30 22:13] LABS: Folate 11.3 ng/mL (See Note)
== END 2020-06-29 14:51 | disposition home or self-care (01) ==
LOC: NCHCN 14:50
PROVIDERS: PCP Nurse Practitioner Family; Visit Provider Nurse Practitioner Family
DX: E03.9 Hypothyroidism, unspecified (principal); R79.89 Other specified abnormal findings of blood chemistry; I10 Essential (primary) hypertension; E55.9 Vitamin D deficiency, unspecified
CPT/HCPCS: 80053; 80061; 82306; 85027; 86803; 87389; 82607; 82746; 84443

== ENCOUNTER 2020-08-02 02:46 | Outpatient (CLI) | payer MEDICAID, SELFPAY ==
--- NOTE | 2020-08-02 15:47 | DI.MAMMO_ITS ---
EXAM: MG MAMMO SCREENING CLINICAL HISTORY: SCREENING, Z12.39 TECHNIQUE: Bilateral full field digital CC and MLO mammographic images were obtained with 3D tomosyn thesis and utilizing computer aided detection (CAD). COMPARISON: Available for comparison. FINDINGS: Masses/Architectural Distortion: None seen. Microcalcifications: No suspicious pleomorphic-type are seen. Skin Thickening/Nipple Retraction: None. IMPRESSION: 1. No significant interval change with no specific features of malignancy noted. 2. Unless there is more urgent need, screening mammography is recommended, as per [employer] guidelines. BI-RADS Category 1 - Negative Breast Density - Category B - Scattered areas of fibroglandular density Breast density category C or D implies that the patient has dense breast tissue. Dense breast tissue is very common and is not abnormal but dense breast tissue can make it harder to find cancer on a ma mmogram. Also, dense breast tissue may increase their breast cancer risk. This information about the result of the mammogram report was provided to the patient to raise their awareness. Use this report when you speak with the patient about their risks for breast cancer, which includes their family hist ory. At that time, you may recommend for more screening tests (Ultrasound or MRI) as they might be us eful based on their risk. A negative radiographic report should not delay biopsy if a dominant or clinically suspicious mass is present. Up to ten percent of cancers are not identified on mammography. A negative report may reinforce clinical impression. Adenosis and dense breasts may obscure an underlying neoplasm. False positive reports average 6 to 10%. Patient will receive a letter notifying them of these results.
== END 2020-08-02 03:06 ==
PROVIDERS: PCP Nurse Practitioner Family; Visit Provider Nurse Practitioner Family
DX: Z12.31 Encounter for screening mammogram for malignant neoplasm of breast (principal)
CPT/HCPCS: 77063; 77067

== ENCOUNTER 2020-09-09 23:08 | Emergency (ER) | payer MEDICAID, SELFPAY ==
--- NOTE | 2020-09-09 23:15 | RT.EKG_ITS ---
APPROVED REPORT Exam: Resting ECG Patient Location: E HR:69 bpm ECG Measurements Heart Rate 69 AXIS SD 184 P 29 QRSd 89 QRS -25 QT 478 T -5 QTc 513 Conclusion Sinus rhythm...normal P axis, V-rate 60- 99 Low voltage, precordial leads...precordial leads <1.0mV Prolonged QT interval...QTc >510mS I have reviewed and interpreted ECG and agree with software generated interpretation. Physician: No STEMI
[2020-09-09 23:18] VITALS: BP 148/80; PULSE 76; RESP 16; TEMP 36.6; O2SAT 98
--- NOTE | 2020-09-09 23:33 | ED.GENADUL_ITS ---
Discharge Plan Disposition Patient Disposition: HOME Condition: Good Discharge Details Clinical Impression: Encounter for medical assessment, Tingling Primary Care Provider: Brooks Pemberton ED Provider: Mikhail Harvey Home Meds and New Rx's Prescriptions: Continued cholecalciferol (vitamin D3) 2,000 unit capsule 2,000 unit PO DAILY Qty: 90 RF: 3 atenolol 25 mg tablet 25 mg PO DAILY Qty: 90 RF: 3 cyanocobalamin (vitamin B-12) 1,000 mcg/mL solution 1,000 mcg Sub-Q MONTHLY Qty: 10 RF: 0 (DME) Syringe 3cc/20Gx1 3 mL 20 gauge x 1 syringe 1 ea SQ monthly Qty: 1 RF: 0 omeprazole 40 mg capsule,delayed release(DR/EC) 40 mg PO DAILY Qty: 90 RF: 4 verapamil 240 mg tablet extended release 240 mg PO DAILY Qty: 90 RF: 4 aspirin [Ecotrin Low Strength] 81 MG tablet,delayed release (DR/EC) 81 mg PO DAILY RF: 0 indomethacin 25 MG capsule 25 mg PO TID PRNQty: 30 RF: 0 quetiapine [Seroquel] 400 MG tablet 400 mg PO HS RF: 0 quetiapine [Seroquel] 100 mg tablet 50 mg PO BID RF: 0 sumatriptan succinate [Imitrex] 50 mg tablet 50 mg PO q 3 days prn Qty: 9 RF: 1 pravastatin 40 mg tablet 40 mg PO HS Qty: 90 RF: 4 levothyroxine 25 mcg tablet 25 mcg PO DAILY RF: 0 polyethylene glycol 3350 [Miralax] 17 gram/dose powder 17 g PO DAILY PRNRF: 0 verapamil 180 mg capsule,ext rel. pellets 24 hr 180 mg PO DAILY RF: 0 acetaminophen [Pain and Fever] 500 mg tablet 500 mg PO .Q8 PRN (Reason: pain) Qty: 60 RF: 0 escitalopram oxalate 10 mg tablet 10 mg PO DAILY RF: 0 Discharge Instructions Additional Instructions: At this time your neurologic exam is normal and very reassuring. I suspect that your brief episode of whole body tingling/burning was likely secondary to your new medication. However it is important to always stay well-hydrated, and take your medications on a full stomach. I think it is reasonable to try the medication again tomorrow, if you continue to have your symptoms then it would be reasonable to hold on the medication for the future. If you notice any worsening of your symptoms, or any new symptoms such as vomiting, diarrhea, fever, chills, shortness of breath, chest pain, numbness, weakness, or fainting , please return immediately to the emergency department for reevaluation. Please follow up with your primary care provider as soon as possible for reassessment and reevaluation. As always, it was a pleasure participating in your medical care today. Referrals: Brooks Pemberton NP [Primary Care Provider] - Discharge Data Discharge Date/Time-TO BE ENTERED AT DEPARTURE: 09/09/20 23:40 Medical Decision Making This is a 55-year-old female with past medical history of depression, hypertension, previous B12 deficiency, who presents today for very brief episode of whole body burning sensation from the toes to her head. Patient states that she just started escitalopram today, took the first dose this morning. No complications are up-to-date until she lie down for bed where she had a brief episode lasting just a minute or so feeling burning all over her body. She had no other chest pain, shortness of breath, headache, vision changes, numbness tingling or weakness. The burning was notably transient and went away on its own. She has not been drinking much water or fluids today. She denies any history of stroke or family history of stroke. She denies a history of heart attack or family history of heart attack. She denies any tobacco use. No other complaints at this time. No IV or illicit drug use. Currently the patient states she feels well. EKG is unremarkable. Physical exam and neurologic assessment is notably unremarkable. No focal neurologic deficits. Normal sensation under all extremities. No decrease in pinprick or light touch. No hot cold reversal. Symptoms are completely resolved after the brief episode that she had at home. At this time signs and symptoms appear likely consistent to a side effect from her medication. Patient interestingly also states that the symptoms felt very similar/nearly identical to when she had the anal burning sensation that occurred with IV Toradol administration. Currently with an unremarkable exam, I do feel she can be discharged. No indication for emergent imaging or labs. Symptoms do not appear consistent with a significant B12 or folate deficiency at this time. Discussed red flags which to return. I do feel would be reasonable to continue her escitalopram and see if the symptoms continue tomorrow. If they do it would probably be reasonable to stop taking the medication. Recommend good hydration at home. I have extensively reviewed the treatment plan and discharge instructions with the patient. I have addressed all patient concerns at this time. The patient was made aware of what symptoms to monitor for that would warrant a return to the emergency department. Discussed the plan with the patient, they demonstrate verbal understanding and agreement with our assessment and plan at this time. The documentation in this chart was dictated using [employer] dictation software. Please excuse any dictation errors. HPI General Date/Time Provider Initiated Documentation: 09/09/20 23:15 . HPI Narrative: This is a 55-year-old female with past medical history of depression, hypertension, previous B12 deficiency, who presents today for very brief episode of whole body burning sensation from the toes to her head. Patient states that she just started escitalopram today, took the first dose this morning. No complications are up-to-date until she lie down for bed where she had a brief episode lasting just a minute or so feeling burning all over her body. She had no other chest pain, shortness of breath, headache, vision changes, numbness tingling or weakness. The burning was notably transient and went away on its own. She has not been drinking much water or fluids today. She denies any history of stroke or family history of stroke. She denies a history of heart attack or family history of heart attack. She denies any tobacco use. No other complaints at this time. No IV or illicit drug use. Currently the patient states she feels well. Related Data Home Medications Medication Instructions Recorded Confirmed aspirin [Ecotrin Low Strength] 81 mg PO DAILY tab-cap 08/05/12 12/10/19 indomethacin 25 mg PO TID PRN #30 cap 12/06/14 12/10/19 quetiapine [Seroquel] 400 mg PO HS 11/18/16 12/10/19 atenolol 25 mg tablet 25 mg PO DAILY #90 tab-cap 02/24/18 12/10/19 cholecalciferol (vitamin D3) 50 2,000 unit PO DAILY #90 cap 02/24/18 12/10/19 mcg (2,000 unit) capsule cyanocobalamin (vitamin B-12) 1,000 mcg SUB-Q MONTHLY #10 ml 02/24/18 12/10/19 1,000 mcg/mL injection solution omeprazole 40 mg capsule,delayed 40 mg PO DAILY #90 tab-cap 02/24/18 12/10/19 release syringe with needle 3 mL 20 gauge #1 syringe 02/24/18 05/09/18 x 1 verapamil 240 mg tablet,extended 240 mg PO DAILY #90 tab-cap 02/24/18 12/10/19 release quetiapine 100 mg tablet 50 mg PO BID tab 04/08/18 12/10/19 sumatriptan succinate 50 mg tablet 50 mg PO q 3 days prn #9 tab-cap 07/02/18 12/10/19 pravastatin 40 mg tablet 40 mg PO HS #90 tab 07/03/18 12/10/19 acetaminophen [Pain and Fever] 500 mg PO .Q8 PRN #60 tab 12/13/18 12/10/19 levothyroxine 25 mcg tablet 25 mcg PO DAILY 07/24/20 polyethylene glycol 3350 17 17 g PO DAILY PRN 07/24/20 gram/dose oral powder verapamil 180 mg 24 hr 180 mg PO DAILY 07/24/20 capsule,extended release escitalopram oxalate 10 mg PO DAILY 09/09/20 09/09/20 Previous Rx's Medication Instructions Recorded atenolol 25 mg tablet 25 mg PO DAILY #90 tab-cap 02/24/18 cholecalciferol (vitamin D3) 50 2,000 unit PO DAILY #90 cap 02/24/18 mcg (2,000 unit) capsule cyanocobalamin (vitamin B-12) 1,000 mcg SUB-Q MONTHLY #10 ml 02/24/18 1,000 mcg/mL injection solution omeprazole 40 mg capsule,delayed 40 mg PO DAILY #90 tab-cap 02/24/18 release syringe with needle 3 mL 20 gauge #1 syringe 02/24/18 x 1 verapamil 240 mg tablet,extended 240 mg PO DAILY #90 tab-cap 02/24/18 release sumatriptan succinate 50 mg tablet 50 mg PO q 3 days prn #9 tab-cap 07/02/18 pravastatin 40 mg tablet 40 mg PO HS #90 tab 07/03/18 acetaminophen [Pain and Fever] 500 mg PO .Q8 PRN #60 tab 12/13/18 Allergies Allergy/AdvReac Type Severity Reaction Status Date / Time codeine [Codeine] AdvReac HALLUCINATI Verified 09/09/20 23:22 ONS General Stated Complaint: GenMedical CHERIE: 3 Review of Systems All systems reviewed & are unremarkable except as noted in HPI and below PFSH Medical History Big thyroid BMI 36.0-36.9,adult Dementia Elevated LFTs Family history of breast cancer gene mutation in first degree relative History of depression HTN (hypertension) Hypothyroidism Sleep apnea Syncope Thyroid nodule Vitamin B12 deficiency (non anemic) Surgical History Hysterectomy, Laproscopic for endometriosis Family History Mother Diabetes Essential hypertension Atrial fibrillation Hyperlipidemia Neoplasm UTERINE/SKIN Father Essential hypertension Hyperlipidemia Sister Essential hypertension Hyperlipidemia Brother Essential hypertension Hyperlipidemia Grandfather Heart disease Neoplasm THYROID Stroke Grandfather Heart disease Grandmother Diabetes Heart disease Stroke Grandmother Essential hypertension Hyperlipidemia Social History Smoking/Tobacco Use Status: Never Smoking risk assessment performed?: Yes Alcohol Intake: current Alcohol Intake frequency: a few times a month Drug use: Never Substance use type: does not use Household members: other Details: 2 Pets and animals: Yes Pets and animals: cat(s) and dog(s) What type of physical activity do you participate in: none Do you feel safe at home: Yes Do you feel safe in your relationship?: Yes Exam Narrative Exam Narrative: 1.Const: Well-nourished, Well-developed, appearing stated age 2.Eyes: PERRL, no conjunctival injection, and symmetrical lids. 3.ENT: Atraumatic external nose and ears. Moist MM. Neck: Symmetric, trachea midline, No thyromegaly. 4.CVS: +S1/S2, No murmurs or gallops. Peripheral pulses 2+ and equal in all extremities. Brisk capillary refill in all extremities. 5.RESP: Unlabored respiratory effort. Clear to auscultation bilaterally. No wheezes rales or rhonchi 6.GI: Soft, Nontender/Nondistended, No hepatosplenomegaly. No guarding or rebound. 7.MSK: Normocephalic/Atraumatic, Extremities w/o deformity or ttp No cyanosis or clubbing, Normal movement of all extremities. Negative Chvostek sign. Negative Trousseau sign. 8.Skin: Warm, Dry. No rashes or lesions. 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 Sensation grossly intact, no focal neurologic deficits. All 6 cardinal planes of vision are fully intact. No evidence of rotatory or vertical nystagmus. The patient demonstrated a normal egkuig-ofoz-gcipqp, good dexterity. There was no evidence of dysdiadochokinesia. Patient was able to ambulate without difficulty. There was no wide-based gait. Romberg testing was normal. Agvy-bw-hnio testing was normal. Sensation was intact bilaterally as well as muscle strength bilaterally for all extremities. Patient was able to verbalize butter cup with no slurring, or miss pronunciation. 10.Psych: (AAO) x3. Appropriate mood and affect Course Vital Signs Vital signs: Vital Signs Temperature 36.6 C 09/09/20 23:18 Pulse 76 09/09/20 23:18 Respiratory Rate 16 09/09/20 23:18 Blood Pressure 148/80 H 09/09/20 23:18 Pulse Oximetry 98 09/09/20 23:18 Temperature 36.6 C 09/09/20 23:18 Temperature Source Tympanic 09/09/20 23:18 Pulse 76 09/09/20 23:18 Respiratory Rate 16 09/09/20 23:18 Respiratory Effort Non-Labored 09/09/20 23:29 Respiratory Depth Normal 09/09/20 23:29 Respiratory Pattern Normal 09/09/20 23:29 Blood Pressure 148/80 H 09/09/20 23:18 Blood Pressure Position Sitting 09/09/20 23:18 Pulse Oximetry 98 09/09/20 23:18 Oxygen Delivery Method Room Air 09/09/20 23:18 Oxygen Flow Rate 0 09/09/20 23:18 Pain Level 0 09/09/20 23:18
--- NOTE | 2020-09-09 23:49 | NUR.NOTE ---
Nursing Note: Pt ambulatory steady gait for c/o of burning in my feet to my chest that lasted like 3 minutes. Pt reports no chest pain, denies SOB. Denies fever, denies c/o of pain. Speaks complete sentences without difficulty. GCS 15.
== END 2020-09-09 23:40 | disposition home or self-care (01) ==
LOC: ER 23:37
PROVIDERS: Emergency Provider Student in an Organized Health Care Education/Training Program; PCP Nurse Practitioner Family
DX: R20.8 Other disturbances of skin sensation (principal); T43.225A Adverse effect of selective serotonin reuptake inhibitors, initial encounter
CPT/HCPCS: 93005; 99283; 93010

== ENCOUNTER 2020-12-28 02:26 | Outpatient (CLI) | payer MEDICAID, SELFPAY ==
--- NOTE | 2020-12-28 | DI.US_ITS ---
Exam(s) US THYROID EXAM: US THYROID CLINICAL HISTORY: MULTI NODULAR GOITER,E04.2. TECHNIQUE: Ultrasound thyroid performed using standard protocol. COMPARISON: US US THYROID from 12/23/2019 FINDINGS: RIGHT THYROID LOBE: Measures 1.7 cm AP x 1.7 cm wide x 4.2 cm craniocaudal There is a solitary nodule again noted in right lobe which is located inferiorly. Basically unchange d in for size measuring 1.4 x 1.1 x 1.9 cm on today's study. Composition is mixed huseb-xdiyyp-0 point Echogenicity of solid component is isoechoic to surrounding parenchyma-1 point Margins are smooth-0 points There are no internal echogenic foci-0 point Shape assessment in the transverse plane is is wider than taller-0 point Total points for this nodule=2, unchanged, consistent with a TiRads 2 nodule. There are no additional nodules in the right lobe. ISTHMUS: Isthmus is thickened, measuring 5-6 millimeters. No nodules in the isthmus. LEFT THYROID LOBE: Measures 1.3 cm AP x 0.9 wide x 3.9 cm craniocaudal. There are 2 findings in the left lobe More superiorly there is a small 0.5 x 0.5 x 0.7 cm benign colloid cyst More inferiorly there is a 1.0 x 0.6 x 1.0 cm homogeneously solid nodule again noted Composition is solid-2 points Echogenicity is isoechoic to the surrounding gland parenchymal pattern-1 point Margins are smooth-0 points There are no internal echogenic foci-0 points Shape assessment in the transverse plane is wider than taller-0 point Total Points for this nodule: 3 ACR Ti-Rads Category: TR3 This nodule can be followed conservatively LYMPH NODES: There is no significant adenopathy. IMPRESSION: 1. Stable unchanged appearance when compared to the prior ultrasound examination of 12/23/2019. The solitary nodule in the right lobe remains TiRads 2 The solid nodule in the inferior aspect of the left lobe remains tiRads 3 3. There is no significant lymphadenopathy. DATA REPOSITORY:
== END 2020-12-28 02:46 ==
PROVIDERS: PCP Nurse Practitioner Family; Visit Provider Otolaryngology
DX: E04.2 Nontoxic multinodular goiter (principal)
CPT/HCPCS: 76536

== ENCOUNTER 2021-09-06 01:51 | Outpatient (CLI) | payer MEDICAID, SELFPAY ==
--- NOTE | 2021-09-06 09:00 | DI.MAMMO_ITS ---
Exam(s) MAMMO SCREENING EXAM: MAMMO SCREENING CLINICAL HISTORY: SCREENING, Z12.31 TECHNIQUE: Mammograms were interpreted according to the usual protocol including computer analysis w [employer] CAD system, tomosynthesis and C-view imaging. COMPARISON: FINDINGS: The breasts are of moderate density with fairly symmetrical distribution of fibroglandular tissue. N o dominant mass or clumped microcalcification is identified in either breast. The current examinatio n is compared with previous examinations including July 2020 and there has been no gross interval ch kathrine in appearance in comparison with the prior studies. IMPRESSION: No specific evidence of malignancy at this time. Routine screening examinations are suggested at yea rly intervals due to the family history of breast carcinoma. BI-RADS Category 1 - Negative Breast Density - Category B - Scattered areas of fibroglandular density
== END 2021-09-06 02:11 ==
PROVIDERS: PCP Nurse Practitioner Family; Visit Provider Nurse Practitioner Family
DX: Z12.31 Encounter for screening mammogram for malignant neoplasm of breast (principal); Z80.3 Family history of malignant neoplasm of breast
CPT/HCPCS: 77063; 77067

== ENCOUNTER 2022-08-12 01:51 | Outpatient (CLI) | payer MEDICAID, SELFPAY ==
--- NOTE | 2022-08-12 08:45 | DI.NM_ITS ---
APPROVED REPORT Exam: Pharmacologic Patient Location: Out-Patient Room/Bed: Stress Nurse: Kerry Purdy RN Ordering Provider:NILO BERENICE, Contact Number: [phone] BMI: 36.57 Baseline Rhythm: Sinus Bradycardia Indications: Long QT interval, palpitations Medical History Medical History: TBI, cognitive impairment, HLD, HTN, depression, peripheral neuropathy, obesity, hyp othyroidism Cardiac Medications: verapamil, pravastatin, omeprazole, levothyroxine, indomethacin, atenolol, aspir in Allergies: Codeine Cardiac Risk Factors: Family hx, HTN, HLD, pre diabetes, obesity Previous Cardiac Procedures: None Pretest Chest Pain Characteristics: None Exercise History: Sedentary Physical Disabilities: None Lung Sounds: Clear to auscultation Heart Sounds: Regular Stress Test Details Test: Pharmacologic stress testing performed using 0.4 mg of regadenoson per 5 mL given IV over 10 s econds. Reason for pharmacologic stress test: physical limitation. Nuclear Acquisition: Rest Tc-99m/Stress Tc-99m 1 day Rest Isotope: Tc-99m Sestamibi. Dose: 11.5 Date: 08/12/2022 Injection Time: 0850 Stress Isotope: Tc-99m Sestamibi. Dose: 36 Date: 08/12/2022 Injection Time: 1020 HR Resting HR Supine: 58 bpm Max Heart Rate (APMHR): 161.218452 bpm Target HR (85% APMHR): 136.502442 bpm Max HR Achieved: 62 bpm % of APMHR: 38.51 Recovery HR: 58 bpm HR response to stress: Normal HR response to stress BP Resting BP Supine: 130/82 mmHg Max BP: 120/70 mmHg Recovery BP: 118/68 mmHg BP response to stress: Normal blood pressure response to stress. ECG Resting ECG: Sinus Bradycardia Ectopy: None Stress ECG: Sinus Rhythm ST Change: No significant ST segment changes noted Arrhythmia: None Recovery ECG: Sinus Bradycardia Recovery ST Change: No significant ST segment changes noted Recovery Arrhythmia: None Clinical Rate Pressure Product: 7440 Stress ECG Conclusion 1. Resting electrocardiogram showed poor R wave progression 2. Patient underwent testing using pharmacologic stress with regadenoson 3. Peak heart rate achieved was 39% of predicted for age 4. The electrocardiographic portion of the test was nondiagnostic due to inadequate heart rate 5. See MPI report Stress Test Summary STAGE HR BP SpO2 Symptoms NOTES Supine 58 130/62 95 1 min post Lexiscan injection 61 120/70 98 Mild dyspnea-resolved quickly 3 min post Lexiscan injection 60 118/78 97 6 min post Lexiscan injection 58 118/68 96 MPI Conclusion Normal myocardial perfusion without evidence of ischemia or infarction EF 50%, normal wall motion Radiologist Interpretation Radiologist Interpretation by: Gustavo King MD Interpretation Date/Time: 08/13/2022 15:59:08
[2022-08-12] MEDS: Regadenoson 0.4 MG/5 ML SYR IVP (10:10)
== END 2022-08-12 02:11 ==
LOC: DI 01:51
PROVIDERS: PCP Nurse Practitioner Family; Visit Provider Nurse Practitioner Family
DX: R00.2 Palpitations (principal)
CPT/HCPCS: 78452; 93017; J2785

== ENCOUNTER 2022-08-27 17:45 | Outpatient (REF) | payer MEDICAID, SELFPAY ==
[2022-08-27 20:39] LABS: Bilirubin Negative (Negative); Blood Large (Negative); Clarity Clear (Clear); Glucose Negative (Negative); Ketones Negative (Negative); Leukocyte Esterase Small (Negative); Nitrite Negative (Negative); Urobilinogen 0.2 mg/dL (Up to 0.2)
[2022-08-27 20:41] LABS: Bacteria Negative HPF (Negative); C & S Indicated? No; Casts Negative LPF (Negative); Crystals Negative HPF (Negative); Epithelial Cells Many HPF (Negative); Mucus Negative (Negative); Other Cells Negative (Negative)
== END 2022-08-27 17:46 | disposition home or self-care (01) ==
LOC: LBN 17:45
PROVIDERS: PCP Nurse Practitioner Family; Visit Provider Physician Assistant
DX: R30.0 Dysuria (principal); R39.15 Urgency of urination; R35.0 Frequency of micturition
CPT/HCPCS: 81003; 81015

== ENCOUNTER 2022-09-05 13:36 | Outpatient (REF) | payer MEDICAID, SELFPAY | END 2022-09-05 13:37 | disposition home or self-care (01) | LOC: LBN 13:36 | PROVIDERS: PCP Nurse Practitioner Family; Visit Provider Physician Assistant | DX: N39.0 Urinary tract infection, site not specified (principal) | CPT/HCPCS: 87086 ==

== ENCOUNTER 2022-09-05 13:38 | Outpatient (CLI) | payer MEDICAID, SELFPAY ==
--- NOTE | 2022-09-05 10:15 | DI.US_ITS ---
Exam(s) US RENAL EXAM: US RENAL CLINICAL HISTORY: right flank pain R10.9 ABD PAIN. TECHNIQUE: Cornelius scale, color and spectral Doppler were used. COMPARISON: None FINDINGS: Renal size in cm: Right: 12.1 left: 10.7 Echogenicity: Normal Hydronephrosis: No Cyst or mass: No Nephrolithiasis: No Enlarged fatty liver noted. Question of a small amount of fluid seen near the inferior pole of the right kidney. Bladder:Nearly empty Prevoid vol:5 cc Postvoid vol:Not performed IMPRESSION: Small amount of fluid seen near the lower pole of the right kidney. No evidence of hydronephrosis or calculi. DATA REPOSITORY:
== END 2022-09-05 13:58 ==
LOC: DI 13:40
PROVIDERS: PCP Nurse Practitioner Family; Visit Provider Physician Assistant
DX: R10.31 Right lower quadrant pain (principal); K76.0 Fatty (change of) liver, not elsewhere classified
CPT/HCPCS: 76770

== ENCOUNTER 2022-09-05 13:47 | Outpatient (CLI) | payer MEDICAID, SELFPAY ==
[2022-09-05 11:21] LABS: Abs Immature Grans 0.02 10^3/uL (0.0-0.06); Absolute Basophil Count 0.07 10^3/uL (0.0-0.2); Absolute Eosinophil Count 0.25 10^3/uL (0.0-0.7); Absolute Lymphocyte Count 1.79 10^3/uL (1.2-3.4); Basophils % 1.1; Eosinophils % 3.8; HCT 34.5 % (36.0-46.0); Immature Grans % 0.3; Lymphocytes % 27.4; MCH 30.7 pg (27.0-33.0); MCHC 34.8 % (32.0-36.0); MCV 88 fL (80-95); Monocytes % 7.7; Neutrophils % 59.7; Platelet Count 291 10^3/uL (130-400); RBC 3.91 10^6/uL (3.93-5.22); RDW 13.2 % (11.7-14.6); RDW-SD 42.5 fL; WBC 6.53 10^3/uL (4.4-10.8)
[2022-09-05 12:00] LABS: ALT 48 U/L (14-59); AST 32 U/L (15-37); Albumin 4.1 g/dL (3.4-5.0); Alkaline Phosphatase 72 U/L (46-116); Anion Gap 12.4 mmol/L (3-11); BUN 15 mg/dL (7-18); Bilirubin, Total 0.7 mg/dL (0.2-1.0); CO2 22.6 mmol/L (21.0-32.0); CREATININE 1.4 mg/dL (0.55-1.02); Calcium 9.3 mg/dL (8.5-10.1); Chloride 102 mmol/L (98-107); Estimated GFR 43.34 (mL/min/1.73m2); Glucose 180 mg/dL (74-106); Potassium 4.7 mmol/L (3.5-5.1); Sodium 137 mmol/L (136-145); Total Protein 8.2 g/dL (6.4-8.2)
== END 2022-09-05 13:48 | disposition home or self-care (01) ==
LOC: LBO 13:47
PROVIDERS: PCP Nurse Practitioner Family; Visit Provider Physician Assistant
DX: R10.9 Unspecified abdominal pain (principal); N39.0 Urinary tract infection, site not specified
CPT/HCPCS: 36415; 80053; 85025

== ENCOUNTER 2022-09-07 09:20 | Emergency (ER) | payer MEDICAID, SELFPAY ==
[2022-09-07 09:26] VITALS: BP 162/68; PULSE 61; RESP 18; TEMP 36.7; O2SAT 95
--- NOTE | 2022-09-07 09:30 | DI.CT_ITS ---
Exam(s) CT RENAL COLIC WO EXAM: CT RENAL COLIC WO CLINICAL HISTORY: right flank pain. TECHNIQUE: Imaging Protocol: Axial computed tomography images with coronal and sagittal reformatted images were created and reviewed CONTRAST MATERIAL: Intravenous: none Oral: None COMPARISON: CT,NM,TMT NM MPI REST STRESS GRP from 08/12/2022 FINDINGS: VISUALIZED LUNG BASES: Mild subpleural increased markings. No pleural effusions.. ABDOMEN: Images somewhat degraded by motion artifact. There is no ascites. LIVER: The liver is enlarged and diffusely hypodense implying steatosis. There are no discrete focal hepatic lesions identified. GALLBLADDER/BILIARY: Gallbladder is mildly distended. No gallbladder wall edema. CBD is not dilated . PANCREAS: No evidence of pancreatic mass nor dilatation of the pancreatic duct. SPLEEN: Spleen is not enlarged. No obvious intrasplenic lesions. ADRENALS: There are no significant adrenal masses. KIDNEYS:No cysts evident. No radiopaque calculi nor hydronephrosis. Some mild stranding around the r ight kidney inferior pole noted. Ureters are not dilated.. No solid renal masses seen. Urinary ekta dder mostly collapsed. ABDOMINAL AORTA: Abdominal aorta is not enlarged. LYMPH NODES: There is no retroperitoneal nor paraaortic adenopathy. ABDOMINAL WALL: No evidence of significant anterior abdominal wall nor inguinal hernia. GI: There is no evidence of bowel obstruction, free air, nor abscess. PELVIS: LYMPH NODES: There is no intrapelvic nor inguinal adenopathy. GI: No evidence of appendicitis.There is no evidence of significant sigmoid diverticular disease. URINARY BLADDER: No calculi nor obvious masses evident REPRODUCTIVE: Uterus appears to be surgically absent. There are no abnormal adnexal masses. No free fluid in the pelvis. OSSEOUS: No significant osseous lesions. No fractures. Some degenerative disc disease L5-S1 level n oted. IMPRESSION: 1. No evidence of appendicitis nor diverticulitis. 2. No radiopaque kidney stones nor ureteral calculi. No calculi in the urinary bladder. No hydronep hrosis. There is, however, some mild stranding in the fat subjacent to the inferior pole the right k idney. Possibly related to infectious etiologies such as pyelonephritis. 3. Hepatic steatosis. Liver is also prominent in size. No obvious discrete focal hepatic lesions. No ascites. No splenomegaly. 4. Previous hysterectomy. No abnormal adnexal masses. RADIATION DOSE DELIVERED: 1,171.97mGy.cm Total DLP DATA REPOSITORY: All CT scans at this facility are submitted to the National Radiology Data Registry (NRDR) Dose Index Registry (DIR) with the [employer] (ACR). RADIATION OPTIMIZATION: All CT scans at this facility use at least one of these dose optimization te chniques: automated exposure control; mA and/or kV adjustment per patient size (includes targeted exa ms where dose is matched to clinical indication); or iterative reconstruction.
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
[2022-09-07] MEDS: Lidocaine 5% Patch 1 PATCH TP (10:10)
[2022-09-07 10:24] LABS: Bilirubin Negative (Negative); Blood Negative (Negative); Clarity Sl Cloudy (Clear); Glucose 100 mg/dL (Negative); Ketones Negative (Negative); Leukocyte Esterase Negative (Negative); Nitrite Negative (Negative); Urobilinogen 0.2 mg/dL (Up to 0.2)
[2022-09-07 10:32] LABS: Bacteria Moderate HPF (Negative); C & S Indicated? No/Sq. Contamination; Casts Negative LPF (Negative); Crystals Negative HPF (Negative); Epithelial Cells Many HPF (Negative); Mucus Negative (Negative); RBC 0-2 HPF (0-2)
--- NOTE | 2022-09-07 11:02 | DI.VRAD_ITS ---
PROCEDURE INFORMATION: Exam: CT Abdomen And Pelvis Without Contrast Exam date and time: 09/07/2022 10:27 AM Age: 57 years old Clinical indication: Other: Right flank pain TECHNIQUE: Imaging protocol: Computed tomography of the abdomen and pelvis without contrast. COMPARISON: No relevant prior studies available. FINDINGS: Liver: The liver is enlarged and of decreased heterogeneous attenuation. There is no cysts or masses. Gallbladder and bile ducts: There is no common bile duct dilation. Pancreas: Inferior portion of the head of the pancreas is lucent. This lucency extends into neck area. The body and tail of the pancreas are normal. Pancreatic duct dilatation. Spleen: Normal. No splenomegaly. Adrenal glands: The adrenal glands are normal. Kidneys and ureters: The lateral margin of the right kidney has subcapsular fat that could be related prior injury. There is slightly more right perinephric stranding than on the left side. This finding is worse along the inferior pole side with some irregularity in the cortex that could be due to focal infection. No hydroureteronephrosis or nephrolithiasis. Stomach and bowel: Unremarkable. No obstruction. No mucosal thickening. Appendix: No evidence of appendicitis. Intraperitoneal space: Unremarkable. No free air. No significant fluid collection. Vasculature: Unremarkable. No abdominal aortic aneurysm. Lymph nodes: Unremarkable. No enlarged lymph nodes. Urinary bladder: The bladder is decompressed. Reproductive: There has been a hysterectomy. Bones/joints: Unremarkable. No acute fracture. Soft tissues: Unremarkable. IMPRESSION: 1. Slightly more right perinephric fat stranding and questionable irregularity of the inferior renal cortex could be due to focal pyelonephritis. No nephrolithiasis or hydronephrosis. 2. Decreased attenuation of the pancreas in the head area. In the correct clinical setting, this could be due to pancreatitis. There are no peripancreatic fluid collections. 3. Hepatic steatosis. Dictated and Authenticated by: Masood Fonseca MD. Ordering:CHARMAINE Ludwig MD
== END 2022-09-07 11:27 | disposition home or self-care (01) ==
PROVIDERS: Emergency Provider Emergency Medicine; PCP Nurse Practitioner Family
DX: R10.9 Unspecified abdominal pain (principal); I10 Essential (primary) hypertension; E03.9 Hypothyroidism, unspecified; N17.9 Acute kidney failure, unspecified
CPT/HCPCS: 99284; 74176; 81003; 81015

== ENCOUNTER → 2023-04-15 16:26 | Outpatient (CLI) | payer MEDICAID, SELFPAY ==
--- NOTE | 2023-04-15 16:29 | DI.RAD_ITS ---
Exam(s) XR CHEST 2V PA LATERAL EXAM: XR CHEST 2V PA LATERAL CLINICAL HISTORY: SOB R06.02 ? RLL PNA TECHNIQUE: 2D digital imaging was performed. COMPARISON: CR CHEST 2 VIEWS PA,LAT from 06/22/2015 FINDINGS: HEART: Enlarged. Aorta: Mildly ectatic. PULMONARY VASCULATURE: Normal. LUNGS: Increased patchy densities seen in the right lower lobe, right middle lobe is well as smaller patchy density in the right upper lobe. Also question of mild patchy infiltrates in the left lung. PLEURAL SPACE: No pleural effusion or pneumothorax. BONE:Unremarkable for age. Soft tissues: Unremarkable. IMPRESSION: Multifocal pneumonia. DATA REPOSITORY: RADIATION DOSE DELIVERED:
== END ==
PROVIDERS: PCP Nurse Practitioner Family; Visit Provider Nurse Practitioner Family
DX: R06.02 Shortness of breath (principal); J18.8 Other pneumonia, unspecified organism
CPT/HCPCS: 71046

== ENCOUNTER → 2023-05-13 11:18 | Outpatient (CLI) | payer MEDICAID, SELFPAY ==
--- NOTE | 2023-05-13 11:24 | DI.RAD_ITS ---
Exam(s) XR CHEST 2V PA LATERAL EXAM: XR CHEST 2V PA LATERAL CLINICAL HISTORY: COUGH-R05.9. TECHNIQUE: 2D digital imaging was performed. COMPARISON: CT CT RENAL COLIC WO from 09/07/2022 CR XR CHEST 2V PA LATERAL from 04/15/2023 FINDINGS: 2 views: Heart size unchanged. Mediastinum not widened. There has been no radiographic improvement in the bilateral patchy infiltrates. No associated pleura l effusions seen. No significant osseous findings IMPRESSION: No improvement in the bilateral patchy and nodular infiltrates when compared to 04/15/2023.Recommend follow-up CT scan. DATA REPOSITORY: RADIATION DOSE DELIVERED:
== END ==
PROVIDERS: PCP Nurse Practitioner Family; Visit Provider Nurse Practitioner
DX: R05.9 Cough, unspecified (principal)
CPT/HCPCS: 71046

== ENCOUNTER → 2023-05-15 02:32 | Outpatient (CLI) | payer MEDICAID, SELFPAY ==
--- NOTE | 2023-05-15 | DI.CT_ITS ---
Exam(s) CT CHEST WO EXAM: CT CHEST WO CLINICAL HISTORY: ABNL CXR, PNEUMONIA OF BOTH LUNGS DUE TO INFECTIOUS ORGANISM, J18.9. TECHNIQUE: Imaging protocol: Axial computed tomography images were obtained and coronal and sagittal reformatted images were created and reviewed. COMPARISON: CR XR CHEST 2V PA LATERAL from 04/15/2023 CR XR CHEST 2V PA LATERAL from 05/13/2023 FINDINGS: The examination is limited due to patient motion artifact. Tracheobronchial tree: Patent where visualized. Pulmonary parenchyma: Multifocal bilateral ground-glass opacities are present in the lungs. There ar e small areas of consolidation seen in the right lower lobe. No pulmonary nodules are identified. N o architectural distortion. Mediastinum and Kathy: There are enlarged lymph nodes seen in the mediastinum. There is a 1.9 cm subc arinal lymph node. The esophagus is unremarkable. Thyroid gland: There is a 1.4 cm hypodense nodule in the lower pole of the right thyroid gland. None mergent thyroid ultrasound is recommended for further evaluation. Pleura: No effusion or pneumothorax. Heart: The heart is not dilated. No coronary artery calcifications are seen. No pericardial effusion. Aorta: Thoracic aorta non-dilated. Upper abdomen: Unremarkable. Lymph nodes: No axillary or supraclavicular adenopathy. Soft tissues: Unremarkable. Bones:Within normal limits for the patient's age. IMPRESSION: 1. Multifocal ground-glass opacities with a small area of consolidation in the right lower lobe. Mil dly enlarged lymph nodes in the mediastinum which are likely reactive. Primary diagnostic concern is for an infectious process. COVID-19 cannot be excluded. However, opportunistic and non opportunist ic pathogens should be considered. In addition interstitial disease a such as interstitial pneumonit is, pulmonary edema or hypersensitivity pneumonitis or neoplastic processes should also be considered . 2. Right thyroid nodule. Nonemergent thyroid ultrasound is recommended for further evaluation. RADIATION DOSE DELIVERED: Total DLP Total DLP DATA REPOSITORY: All CT scans at this facility are submitted to the National Radiology Data Registry (NRDR) Dose Index Registry (DIR) with the [employer] (ACR). RADIATION OPTIMIZATION: All CT scans at this facility use at least one of these dose optimization te chniques: automated exposure control; mA and/or kV adjustment per patient size (includes targeted exa ms where dose is matched to clinical indication); or iterative reconstruction.
== END ==
PROVIDERS: PCP Nurse Practitioner Family; Visit Provider Nurse Practitioner
DX: R91.8 Other nonspecific abnormal finding of lung field (principal); J18.9 Pneumonia, unspecified organism; E04.1 Nontoxic single thyroid nodule
CPT/HCPCS: 71250

== ENCOUNTER 2023-06-09 05:42 | Outpatient (CLI) | payer MEDICAID, SELFPAY ==
[2023-06-09] MEDS: Levalbuterol HFA 15 GM INH 4 PUFF IH (09:06)
[2023-06-09] MEDS: Inhaler, Assist Device 1 EACH MC (09:07)
--- NOTE | 2023-06-09 14:57 | W.PFT ---
Date of service: 06/09/23 Time of Service: 08:02 Pulmonary Function Test Result Indications: Cough Interpretation Spirometry: There is no airflow limitation. No significant bronchodilator response. Lung Volumes: Normal lung volumes Diffusion Capacity: Decreased diffusion Airway Pressure: Normal airways resistance Impression There is an isolated diffusion deficit. This can be seen in emphysema, interstitial lung disease or pulmonary vascular disease (pulmonary hypertension). Clinical Correlation therefore is recommended.
== END 2023-06-09 05:43 | disposition home or self-care (01) ==
LOC: RT 05:43
PROVIDERS: PCP Nurse Practitioner; Visit Provider Nurse Practitioner
DX: R05.3 Chronic cough (principal); J84.9 Interstitial pulmonary disease, unspecified
CPT/HCPCS: 94060; 94726; 94729

== ENCOUNTER 2023-06-24 10:38 | Outpatient (REF) | payer MEDICAID, SELFPAY ==
[2023-06-24 11:29] LABS: C-Reactive Protein 0.13 mg/dL (0.0-0.3)
[2023-06-24 11:33] LABS: Abs Immature Grans 0.01 10^3/uL (0.0-0.06); Absolute Basophil Count 0.04 10^3/uL (0.0-0.2); Absolute Eosinophil Count 0.05 10^3/uL (0.0-0.7); Absolute Lymphocyte Count 1.41 10^3/uL (1.2-3.4); Absolute Monocyte Count 0.35 10^3/uL (0.1-0.8); Absolute Neutrophil Count 2.58 10^3/uL (1.2-6.7); Basophils % 0.9; Eosinophils % 1.1; HCT 33.6 % (36.0-46.0); HGB 11.9 g/dL (11.2-15.7); Immature Grans % 0.2; Lymphocytes % 31.8; MCH 31.2 pg (27.0-33.0); MCHC 35.4 % (32.0-36.0); MCV 88 fL (80-95); Monocytes % 7.9; Neutrophils % 58.1; Platelet Count 313 10^3/uL (130-400); RBC 3.82 10^6/uL (3.93-5.22); RDW-SD 42.2 fL; WBC 4.44 10^3/uL (4.4-10.8)
[2023-06-24 11:39] LABS: ESR 18 mm/hr (0-30)
[2023-06-24 17:32] LABS: Rheumatoid Factor <8.6 IU/mL (<12.0)
[2023-06-25 08:57] LABS: Cyclic Citrullinated Peptide <2.5 U/mL (<5.0)
[2023-06-25 12:34] LABS: ANA Interpretation Negative (Negative)
[2023-06-26 16:59] LABS: Fungitell Qualitative Negative (Negative); Fungitell Quantitative Value <31 pg/mL (<60 pg/mL)
[2023-07-01 09:48] LABS: Alter tenuis/alternata IgG <2.0 mcg/mL (<12.0); Aspergillus fumigatus IgG 4.1 mcg/mL (<46.0); Aureobasidium pullulans IgG <2.0 mcg/mL (<18.0); Laceyella sacchari IgG <2.0 mcg/mL (<25.0); Micropolyspora faeni IgG <2.0 mcg/mL (<5.0); Penicillium Chrysogenum IgG 5.3 mcg/mL (<22.0); Phoma betae IgG <2.0 mcg/mL (<8.0)
== END 2023-06-24 10:39 | disposition home or self-care (01) ==
LOC: LBN 10:38
PROVIDERS: PCP Nurse Practitioner; Visit Provider Physician Assistant Surgical
DX: J84.9 Interstitial pulmonary disease, unspecified (principal)
CPT/HCPCS: 85652; 86001; 86200; 87449; 85025; 86038; 86140; 86431

== ENCOUNTER → 2023-07-11 01:47 | Outpatient (CLI) | payer MEDICAID, SELFPAY ==
--- NOTE | 2023-07-11 07:00 | DI.CT_ITS ---
Exam(s) CT CHEST HIGH RESOLUTION EXAM: CT CHEST HIGH RESOLUTION CLINICAL HISTORY: Abnormal chest CT,INTERSTITIAL LUNG DISEASE,OPACITIES,? INFECTIOUS,j84.9. TECHNIQUE: Imaging protocol: Axial computed tomography images were obtained and coronal and sagittal reformatted images were created and reviewed. COMPARISON: CT CT CHEST WO from 05/15/2023 FINDINGS: Tracheobronchial tree: Patent where visualized. Pulmonary parenchyma: The ground-glass infiltrates previously seen have nearly completely resolved. Linear infiltrates are seen in the lung bases. This may represent atelectasis, scarring or pneumonia . No new infiltrates are seen. No architectural distortion. No interstitial disease is seen. Mediastinum and Kathy: No dominant adenopathy or fluid collection. The esophagus is unremarkable. Thyroid gland: There is again seen a 1.4 cm hypodense nodule in the inferior pole of the right thyroi d gland. Nonemergent thyroid ultrasound is recommended for further evaluation. Pleura: No effusion or pneumothorax. Heart: Mild cardiomegaly. No coronary artery calcifications are seen. No pericardial effusion. Aorta: Thoracic aorta non-dilated. Mild atherosclerosis. Upper abdomen: Cholelithiasis. Lymph nodes: Within normal limits. Soft tissues: Unremarkable. Bones:Within normal limits for the patient's age. IMPRESSION: 1. Near complete resolution of the ground-glass infiltrates since 05/15/2023. 2. Linear infiltrate seen in the lung bases which may represent atelectasis, scarring or residual pne umonia. 3. 1.4 cm hypodense right thyroid nodule. Nonemergent thyroid ultrasound is recommended for further evaluation. 4. Cholelithiasis. RADIATION DOSE DELIVERED: 672.43mGy.cm Total DLP 672.43mGy.cm Total DLP DATA REPOSITORY: All CT scans at this facility are submitted to the National Radiology Data Registry (NRDR) Dose Index Registry (DIR) with the [employer] (ACR). RADIATION OPTIMIZATION: All CT scans at this facility use at least one of these dose optimization te chniques: automated exposure control; mA and/or kV adjustment per patient size (includes targeted exa ms where dose is matched to clinical indication); or iterative reconstruction.
== END ==
PROVIDERS: PCP Nurse Practitioner; Visit Provider Physician Assistant Surgical
DX: J84.9 Interstitial pulmonary disease, unspecified (principal)
CPT/HCPCS: 71250

== ENCOUNTER 2023-12-29 19:13 | Outpatient (CLI) | payer MEDICAID, SELFPAY ==
[2023-12-29 22:12] LABS: Rheumatoid Factor <8.6 IU/mL (<12.0)
[2023-12-30 07:51] LABS: Cyclic Citrullinated Peptide <2.5 U/mL (<5.0)
[2023-12-30 11:47] LABS: SS-B (La) Ab, IgG <3.3 CU (<20.0); Sm (Smith) Ab, IgG <8.0 CU (<20.0); dsDNA Ab, IgG <22.0 IU/mL (<27.0)
[2023-12-30 15:18] LABS: ANA Interpretation Negative (Negative)
[2023-12-31 12:11] LABS: Scl 70 Antibodies, IgG <0.2 U
[2023-12-31 14:07] LABS: Myeloperoxidase Ab IgG <0.2 U; Proteinase 3 Ab (PR3) <0.2 U
[2024-01-01 11:24] LABS: Alter tenuis/alternata IgG 3.1 mcg/mL (<12.0); Aspergillus fumigatus IgG 7.7 mcg/mL (<46.0); Aureobasidium pullulans IgG <2.0 mcg/mL (<18.0); Micropolyspora faeni IgG <2.0 mcg/mL (<5.0); Penicillium Chrysogenum IgG 8.3 mcg/mL (<22.0); Phoma betae IgG 3.9 mcg/mL (<8.0)
[2024-01-23 16:04] LABS: Anti-EJ Ab Negative (Negative); Anti-Jo-1 Ab <20 Units (<20); Anti-OJ Ab Negative (Negative); Anti-PL-12 Ab Negative (Negative); Anti-PL-7 Ab Negative (Negative)
[2024-01-23 16:05] LABS: Anti-MDA-5 Ab (CADM-140) <20 Units (<20); Anti-Mi-2-Ab Negative (Negative); Anti-SRP Ab Negative (Negative); Anti-TIF-1gamma Ab <20 Units (<20)
[2024-01-23 16:06] LABS: Anti-Ku Ab Negative (Negative); Anti-NXP-2 (P140) Ab <20 Units (<20); Anti-PM/Scl-100 Ab <20 Units (<20); Anti-SS-A 52kD Ab, IgG <20 Units (<20); Anti-U1 RNP Ab <20 Units (<20); Anti-U2 RNP Ab Negative (Negative)
[2024-01-23 16:09] LABS: Anti-U3 RNP (Fibrillarin) Negative (Negative)
== END 2023-12-29 19:14 | disposition home or self-care (01) ==
LOC: LBO 19:14
PROVIDERS: PCP Nurse Practitioner; Visit Provider Internal Medicine Critical Care Medicine
DX: J84.9 Interstitial pulmonary disease, unspecified (principal)
CPT/HCPCS: 36415; 83516; 86001; 86200; 86235; 86038; 86225; 86431

== ENCOUNTER 2024-01-12 02:59 | Outpatient (CLI) | payer MEDICAID, SELFPAY ==
--- NOTE | 2024-01-12 05:30 | DI.CT_ITS ---
Exam(s) CT CHEST WO EXAM: CT CHEST WO CLINICAL HISTORY: ongoing cough, sob,interstitial lung disease,j84.9 TECHNIQUE: Imaging Protocol: Axial computed tomography images with coronal and sagittal reformatted images were created and reviewed CONTRAST MATERIAL: Intravenous: Omnipaque 350 Contrast volume:structured data ml. COMPARISON: CT CT CHEST WO from 05/15/[address] CHEST HIGH RESOLUTION from 07/11/2023 CR XR PORTABLE CHEST AP from 01/12/2024 FINDINGS: Pulmonary parenchyma: Bilateral ground-glass infiltrates, similar to the descending celine exam. No do minant measurable mass. No visible interstitial changes. No visible emphysematous changes. Tracheobronchial tree: No bronchiectasis or mucous plugging. Mediastinum and Kathy: No fluid collection. Mildly enlarged mediastinal lymph nodes, consistent with reactive lymph nodes. Pleura: No effusion. No pneumothorax. Heart: The heart is not dilated. No coronary artery calcifications are seen. Aorta: Thoracic aorta non-dilated. Mild atherosclerotic changes. Upper abdomen: No acute findings. Bones: Degenerative changes in the spine. Soft tissues: Unremarkable. IMPRESSION: Recurrence bilateral ground-glass infiltrates. RADIATION DOSE DELIVERED: Total DLP DATA REPOSITORY: All CT scans at this facility are submitted to the National Radiology Data Registry (NRDR) Dose Index Registry (DIR) with the [employer] (ACR). RADIATION OPTIMIZATION: All CT scans at this facility use at least one of these dose optimization te chniques: automated exposure control; mA and/or kV adjustment per patient size (includes targeted exa ms where dose is matched to clinical indication); or iterative reconstruction.
== END 2024-01-12 03:19 ==
PROVIDERS: PCP Nurse Practitioner; Visit Provider Internal Medicine Critical Care Medicine
DX: J84.89 Other specified interstitial pulmonary diseases (principal)
CPT/HCPCS: 71250

== ENCOUNTER 2024-01-12 07:35 | Day surgery (SDC) | payer MEDICAID, SELFPAY ==
[2024-01-12] VITALS (52 sets, daily range): BP systolic 92–187; BP diastolic 66–126; PULSE 61–111; RESP 16–26; TEMP 36.3–36.9; O2SAT 86–96; BMI 33.3
--- NOTE | 2024-01-12 | DI.RAD_ITS ---
Exam(s) XR PORTABLE CHEST AP EXAM: XR PORTABLE CHEST AP CLINICAL HISTORY: post biopsy TECHNIQUE: 2D digital imaging was performed. COMPARISON: CT CT CHEST WO from 01/12/2024 FINDINGS: Leads overlie the chest. LUNGS: Bilateral infiltrates greater in the lower lobes. No pleural abnormality seen. HEART: Mildly enlarged. AORTA: Normal diameter. BONES: Unremarkable for age. Soft tissues: Unremarkable. IMPRESSION: Bilateral infiltrates. DATA REPOSITORY: RADIATION DOSE DELIVERED:
--- NOTE | 2024-01-12 07:21 | ANES.PREOP_ITS ---
General Info Date of Service Date Performed: 01/12/24 Height: 5 ft 1.81 in Weight: 82.1 kg Body Mass Index (BMI): 33.3 Surgical Procedure: Operation Date: 01/12/24 09:40 Proposed Procedure Side Surgeon p Bronchoscopy w/BAL, Transbronchial Biopsies Nerissa Carranza MD Meds Allergies and Home Medications Allergies Allergy/AdvReac Type Severity Reaction Status Date / Time codeine (Codeine) AdvReac HALLUCINATI Verified 01/08/24 12:11 ONS Home Medication ?Medication ?Instructions ?Recorded aspirin 81 mg tablet,delayed 81 mg PO DAILY 08/05/12 release (Ecotrin Low Strength) atenolol 25 mg tablet 25 mg PO DAILY #90 tab-caps 02/24/18 cholecalciferol (vitamin D3) 50 2,000 unit PO DAILY #90 caps 02/24/18 mcg (2,000 unit) capsule cyanocobalamin (vitamin B-12) 1,000 mcg subcut MONTHLY #10 mL 02/24/18 1,000 mcg/mL injection solution omeprazole 40 mg capsule,delayed 40 mg PO DAILY #90 tab-caps 02/24/18 release syringe with needle 3 mL 20 gauge #1 SYRG 02/24/18 x 1 (Syringe) sumatriptan succinate 50 mg tablet 50 mg PO q 3 days prn #9 tab-caps 07/02/18 (Imitrex) pravastatin 40 mg tablet 40 mg PO HS #90 tabs 07/03/18 acetaminophen 500 mg tablet (Pain 500 mg PO .Q8 PRN pain #60 tabs 12/13/18 and Fever) levothyroxine 25 mcg tablet 37.5 mcg PO DAILY 06/13/22 hydroxyzine HCl 50 mg tablet 150 mg PO QHS 07/11/22 inhalational spacing device #1 ea 04/01/23 (Aerochamber MV spacer) escitalopram oxalate 10 mg tablet 10 mg PO DAILY 06/06/23 (Lexapro) fluticasone propionate 50 1 spray intranasal DAILY 06/06/23 mcg/actuation nasal spray,suspension lidocaine 4 % topical patch 1 patch topical BID PRN 06/06/23 (Aspercreme (lidocaine)) lumateperone 42 mg capsule 42 mg PO DAILY 06/06/23 (Caplyta) allopurinol 100 mg tablet 100 mg PO DAILY 08/01/23 albuterol sulfate 90 mcg/actuation 2 puff inhalation Q6H PRN 12/29/23 aerosol inhaler shortness of breath or wheezing #6.7 grams fluticasone propionate 115 2 puff inhalation BID #12 grams 12/29/23 mcg-salmeterol 21 mcg/actuation HFA inhaler (Advair HFA) Current Visit Medications: Current Medications Generic Name Dose Route Start Last Admin Trade Name Freq PRN Reason Stop Dose Admin Ringer's Solution 1,000 mls @ 30 mls/hr 01/12/24 06:00 IV 02/08/24 23:59 INFUSION IFTIKHAR IV Miscellaneous Supplies 1 each 01/12/24 06:00 Iv Access IV 02/08/24 23:59 DIRECTED IFTIKHAR Sodium Chloride 0 ml 01/12/24 06:00 Normal Saline Flush 10 Ml Syr IV 02/08/24 23:59 PRN PRN Sodium Chloride 0 ml 01/12/24 06:00 Normal Saline 10 Ml Vial IJ 02/08/24 23:59 DIRECTED PRN Sterile Water 0 ml 01/12/24 06:00 Water,Injection,Sterile 10 Ml Vial IJ 02/08/24 23:59 DIRECTED PRN PFSH Active Problems Active Problems: Problem Status Onset Code Hypersensitivity pneumonia Acute J67.9 Fatty liver Acute K76.0 Multinodular thyroid Acute E04.2 Cognitive impairment Acute R41.89 TBI (traumatic brain injury) Acute S06.9X9A Peripheral neuropathy Acute G62.9 Encounter for medical assessment Acute Z00.8 Tingling Acute R20.2 Multinodular thyroid Acute E04.2 Elevated serum glucose Acute R73.9 Increased body mass index (BMI) Chronic R63.8 Posttraumatic stress disorder Acute F43.10 Vitamin D deficiency Acute 08/06/12 E55.9 Vitamin B 12 deficiency Acute E53.8 Palpitations Acute R00.2 Migraine Acute 07/16/11 G43.909 Memory impairment Acute R41.3 Irritable colon Acute K58.9 Hypothyroidism Acute E03.9 Hyperlipidemia Acute 08/06/12 E78.5 Gout Acute 08/06/12 M10.9 Fatigue Acute R53.83 Essential hypertension Acute 03/19/13 I10 Elevated liver enzymes Acute R74.8 Depressive disorder Acute F32.9 Cervical lymphadenopathy Acute 06/20/15 R59.0 Lipoma of neck Acute D17.0 Medical History Medical History (Updated 01/12/24 @ 08:18 by Coleen Loyd RN) Interstitial lung disease Seasonal allergies GERD (gastroesophageal reflux disease) History of depression Vitamin B12 deficiency (non anemic) Family history of breast cancer gene mutation in first degree relative Sleep apnea BMI 36.0-36.9,adult Thyroid nodule Elevated LFTs HTN (hypertension) Syncope Hypothyroidism Surgical History Surgical History (Updated 01/12/24 @ 08:18 by Coleen Loyd RN) History of lipoma History of colonoscopy Normal esophagogastroduodenoscopy (EGD) 09/2001 Status post laparoscopic hysterectomy Hysterectomy, Laproscopic for endometriosis Tobacco Smoking/Tobacco Use Status: Never Alcohol Alcohol Intake: current Alcohol intake frequency: a few times a month Alcohol type: beer Substance Use Substance use: Never Substance use type: does not use Vital Signs and Lab Results Lab Results Blood Type / Crossmatch: No Data to Display Complete Blood Count: No Data to Display Complete Metabolic Panel: No Data to Display Liver Function Panel: No Data to Display Coagulation Panel: No Data to Display Cardiac Panel: No Data to Display Arterial Blood Gas: No Data to Display Venous Blood Gas: No Data to Display Pancreas Panel: No Data to Display Thyroid Panel: No Data to Display Infectious Disease: No Data to Display Blood Cultures: No Data to Display Toxicology Panel: No Data to Display Imaging and Studies Imaging and Studies Study information below may be from another EMR and interpreted by another provider. Please see original notes in EMR for more complete details. EKG Summary: EKG PATIENT NAME: GILMA CARSON UNIT #: [id number] ORDERING PROVIDER: Mikhail Vegas DO PRIMARY CARE PROVIDER: PAOLO KING NP DATE/TIME OF SERVICE: 09/09/20 2331 : 1965 PERFORMING LOCATION: ER APPROVED REPORT Exam: Resting ECG Patient Location: E HR:69 bpm ECG Measurements Heart Rate 69 AXIS LA 184 P 29 QRSd 89 QRS -25 QT 478 T-5 QTc 513 Conclusion Sinus rhythm...normal P axis, V-rate 60- 99 Low voltage, precordial leads...precordial leads <1.0mV Prolonged QT interval...QTc >510mS I have reviewed and interpreted ECG and agree with software generated interpretation. Physician: No STEMI ------ <Electronically signed by MIKHAIL VEGAS DO in OV> E-Sign Date: 09/09/20 E-Sign Time: 2337 ADDENDUM APPROVED REPORT Exam: Resting ECG Patient Location: E HR:69 bpm ECG Measurements Heart Rate 69 AXIS LA 184 P 29 QRSd 89 QRS -25 QT 478 T-5 QTc 513 Conclusion Sinus rhythm...normal P axis, V-rate 60- 99 Low voltage, precordial leads...precordial leads <1.0mV Prolonged QT interval...QTc >510mS I have reviewed and interpreted ECG and agree with software generated interpretation. Physician: No STEMI I have reviewed and I agree with the emergency room physician's ECG interpretation. Electronically signed by: <Electronically signed by Margoth Shaikh M.D. in [place]> 09/11/20 0842 Cosigned by: Stress Test Summary: Patient Name: Gilma Carson Unit #: [id number] Loc: Ordering Provider: Nilo Bosch Status: [facility] Primary Care Provider: Niol Bosch Date of Exam: 08/12/22 Sex: F Admission Date: 08/12/22 : 1965 Age: 57 APPROVED REPORT Exam: Pharmacologic Patient Location: Out-Patient Room/Bed: Stress Nurse: Kerry Purdy RN Ordering Provider:NILO NG Contact Number: [phone] BMI: 36.57 Baseline Rhythm: Sinus Bradycardia Indications: Long QT interval, palpitations Medical History Medical History: TBI, cognitive impairment, HLD, HTN, depression, peripheral neuropathy, obesity, hypothyroidism Cardiac Medications: verapamil, pravastatin, omeprazole, levothyroxine, indomethacin, atenolol, aspirin Allergies: Codeine Cardiac Risk Factors: Family hx, HTN, HLD, pre diabetes, obesity Previous Cardiac Procedures: None Pretest Chest Pain Characteristics: None Exercise History: Sedentary Physical Disabilities: None Lung Sounds: Clear to auscultation Heart Sounds: Regular Stress Test Details Test: Pharmacologic stress testing performed using 0.4 mg of regadenoson per 5 mL given IV over 10 seconds. Reason for pharmacologic stress test: physical limitation. Nuclear Acquisition: Rest Tc-99m/Stress Tc-99m 1 day Rest Isotope: Tc-99m Sestamibi. Dose: 11.5 Date: 08/12/2022 Injection Time: 0850 Stress Isotope: Tc-99m Sestamibi. Dose: 36 Date: 08/12/2022 Injection Time: 1020 HR Resting HR Supine: 58 bpmMax Heart Rate (APMHR): 161.252395 bpm Target HR (85% APMHR): 136.554257 bpm Max HR Achieved: 62 bpm % of APMHR: 38.51 Recovery HR: 58 bpm HR response to stress: Normal HR response to stress BP Resting BP Supine: 130/82 mmHg Max BP: 120/70 mmHg Recovery BP: 118/68 mmHg BP response to stress: Normal blood pressure response to stress. ECG Resting ECG: Sinus Bradycardia Ectopy: None Stress ECG: Sinus Rhythm ST Change: No significant ST segment changes noted Arrhythmia: None Recovery ECG: Sinus Bradycardia Recovery ST Change: No significant ST segment changes noted Recovery Arrhythmia: None Clinical Rate Pressure Product: 7440 Stress ECG Conclusion 1. Resting electrocardiogram showed poor R wave progression 2. Patient underwent testing using pharmacologic stress with regadenoson 3. Peak heart rate achieved was 39% of predicted for age 4. The electrocardiographic portion of the test was nondiagnostic due to inadequate heart rate 5. See MPI report Stress Test Summary [id number] 1 min post Lexiscan [id number] dyspnea-resolved quickly 3 min post Lexiscan [id number]/7897 6 min post Lexiscan [id number]/6896 MPI Conclusion Normal myocardial perfusion without evidence of ischemia or infarction EF 50%, normal wall motion Radiologist Interpretation Radiologist Interpretation by: Gustavo King MD Interpretation Date/Time: 08/13/2022 15:59:08 Ordered By: Nilo Bosch CC: JERRY CANDELARIA,MARGOTH ROBBINS Dictated By: Margoth Shaikh M.D. 08/12/22 1035 <Electronically signed by Margoth Shaikh M.D. in [place]> 08/13/22 7829 Transcribed By: Margoth Shaikh MD This is privileged, confidential information intended only for the provider [facility]. Any use or distribution by any person other than this provider is strictly prohibited. If you receive this report in error, please notify us immediately at [phone] and return the original report to us at the address above. Thank- you. Pulmonary Function Summary: Pulmonary Function Test PATIENT NAME: Gilma Carson UNIT #: [id number] ADMITTING PROVIDER: Julia Diaz M.D. PRIMARY CARE PROVIDER: JOVANY JETT DATE OF ADMIT: 06/09/23 : 1965 Date of service: 06/09/23 Time of Service: 08:02 Pulmonary Function Test Result Indications: Cough Interpretation Spirometry: There is no airflow limitation. No significant bronchodilator response. Lung Volumes: Normal lung volumes Diffusion Capacity: Decreased diffusion Airway Pressure: Normal airways resistance Impression There is an isolated diffusion deficit. This can be seen in emphysema, intersti tial lung disease or pulmonary vascular disease (pulmonary hypertension). Clinical Correlation therefore is recommended. cc: Dictated by: JULIA DIAZ MD Dictated: 06/09/23 Time: 1456 <Electronically signed by Julia Diaz M.D.> Date: 06/09/231457 Date: Date: Transcribed Date: 06/09/23 Transcribed Time: 1456 By: BASIL This is privileged, confidential information, intended only for the provider named. Any use or distribution by any person other than this provider is strictly prohibited. If you receive this report in error, please notify us immediately at [phone] and return the original report to us at the address above. Thank you. Anesthesia Assessment and Plan Anesthesia History Personal History: No History of Anesthesia Complications Family History: No Family History of Anesthesia Complications Exercise Tolerance Exercise Tolerance: Metabolic Equivalents>4 Pertinent Negatives Pertinent Negatives: No Symptoms of GERD and No Major Cardiovascular Symptoms or Complaints Cardiac & Pulmonary Exam Cardiac Exam: Normal S1/S2 Heart Sounds Pulmonary Exam: Clear Bilateral Breath Sounds Implantable Cardiac Device Does patient have a Pacemaker or an ICD?: No Airway Exam Known Difficult Airway: No Mallampati Class: 3 Mouth Opening: Narrow (< 3cm) Thyromental Distance: Greater than 3 cm Neck Range of Motion: Full ROM Neck Circumference: Normal Teeth Condition: Normal Dentition ASA Classification ASA Score: ASA 3 Emergency Case?: No NPO Status NPO Status: NPO Clears >2 hours, Solids >8 hours Anesthesia Plan Resuscitation Status: Full Code Anesthesia Technique: General Anesthesia Airway Planned: Endotracheal Tube Monitors Used: Standard Monitors
[2024-01-12] MEDS: Lactated Ringers 1,000 ML 30 ML IV (08:37)
[2024-01-12] MEDS: Levothyroxine 25 MCG TAB 37.5 MCG PO (09:10)
--- NOTE | 2024-01-12 10:12 | PAPNONF_PTH ---
PATIENT: Gilma Emerson LOC: [facility] U#:[id number] AGE/SX: 58/F ROOM: RE01/12/[address]: Nerissa Carranza : 1965 BED: DIS: 01/12/2024 SPEC #: [id number] RECD: 01/12/24 12:58 STATUS: NIA REQ #: [id number] DONTAE: 01/12/24 10:[address]: Nerissa Carranza DEPT: FA Cytology RECD BY: Ciarra Dockery ENTERED: 01/12/24 12:59 SP TYPE: DESHAWN MCDONALD DR: Fiorella Bear Tissues: 1 - BODY FLUID CYTO(NOT S/U/N/EM)[facility] Procedures: BODY FLUID CYTO(NOT SPU/UR/NIP/ENDOM)[facility] Comments: [id number] (REFRIGERATED)
--- NOTE | 2024-01-12 10:12 | BRONCH_PTH ---
PATIENT: Gilma Emerson LOC: [facility] U#:[id number] AGE/SX: 58/F ROOM: RE01/12/[address]: Nerissa Carranza : 1965 BED: DIS: 01/12/2024 SPEC #: [id number] RECD: 01/12/24 12:41 STATUS: NIA REQ #: [id number] DONTAE: 01/12/24 10:[address]: Nerissa Carranza DEPT: Surgical Specimen RECD BY: Ciarra Dockery ENTERED: 01/12/24 12:43 SP TYPE: Bronch Bx OTHR DR: Fiorella Bear Tissues: 1 - BRONCHUS BIOPSY Procedures: GROSS AND MICRO LEVEL 4 Comments: [id number] (FLOW CYTOMETRY [place] - [id number])
--- NOTE | 2024-01-12 10:35 | DI.RAD_ITS ---
Exam(s) RF FLUORO<1 HOUR EXAM: RF FLUORO<1 HOUR CLINICAL HISTORY: Interstitial lung disease TECHNIQUE: 2D and realtime digital imaging was performed. CONTRAST MATERIAL: Refer to procedure report. COMPARISON: No exams were available for comparison FINDINGS: Fluoroscopy was provided for Dr. Carranza. Please refer to the procedure report for complete detail reji Kim=3.58 mGy IMPRESSION: RADIATION DOSE DELIVERED: 0.0 0.0 0
--- NOTE | 2024-01-12 10:46 | W.PM.OP ---
Date of service: 01/12/24 Time of Service: 10:46 Operative Note Operative Note DATE OF PROCEDURE: 01/12/24 PRE-OP DIAGNOSIS: SOB Bilateral GGO SOB, Bilateral GGO PROCEDURE: Bronchoscopy w/ BAL,transbronchial biopsies RUL/RML SURGEON: Nerissa Carranza ANESTHESIA TYPE: General LMA/ETT Refer to Anesthesia Record ESTIMATED BLOOD LOSS: 0 Procedure Description: After patent consented to procedure she was brought to OR and after sedation given ETT 8.0 placed without difficulty. Bronchoscopy then introduced through ETT and trachea, R main and L main stem bronchus as well as subsegments were inspected and suctioned free of secretions. No significant airway lesions seen. 190ml saline was instilled on RML and abut 50ml suctioned back. Under fluoroscopic guidance RML/RUL biopsies were obtained w/ no bleeding. Patient tolerated procedure well. No immediate complications CXR is pending at the time of this note. Samples will be sent to -cell count -micro -afb -fungal culture -flow cytometry -cytology -path
[2024-01-12] MEDS: Albuterol/Ipratropium 3 ML UPD VIAL UPD (10:58)
[2024-01-12] MEDS: Benzonatate 100 MG CAP PO (11:42)
--- NOTE | 2024-01-12 13:21 | W.ANESPOSTOP ---
Postoperative Evaluation Date, Time and Location Date Performed: 01/12/24 Time Performed: 13:21 Patient Location: Day [facility] Unit Vital Signs Most Recent Imported Vital Signs: Most Recent Vital Signs Temp Pulse Resp BP Pulse Ox 36.3 C L 62 17 177/73 H 94 01/12/24 12:30 01/12/24 12:30 01/12/24 12:47 01/12/24 12:30 01/12/24 13:08 Pain Score Most Recent Pain Score: Most Recent Pain Score Pain Level 0 01/12/24 12:30 Assessment Mental Status: Awake (Alert & Oriented to Patient Baseline) Airway and Respiratory Function: Patent airway with normal (patient baseline) respiratory exam Cardiovascular Function: Hemodynamically Stable Hydration Status: Adequately Hydrated Nausea & Vomiting: No Nausea or Vomiting Pain: Pt. Denies Any Pain Peripheral Nerve Block: Patient did not receive a nerve block
[2024-01-12 20:11] LABS: Adenovirus DNA Result Negative (Negative); Metapneumovirus RNA Result Negative (Negative); Parainfluenza Type1 RNA Result Negative (Negative); Parainfluenza Type2 RNA Result Negative (Negative); Parainfluenza Type3 RNA Result Negative (Negative); Parainfluenza Type4 RNA Result Negative (Negative); Rhinovirus RNA Result Negative (Negative)
[2024-01-13 08:55] LABS: Lymphocytes Fluid Relative 37 %; Mesothelial Cells Fluid Review 6 %; Mono/Macrophage Fluid Relative 55 %; Neutrophils Fluid Relative 2 %; Other Cells Fluid Relative 0 %
[2024-01-14 07:34] LABS: Gram Smear Result Neutrophils Present
[2024-02-19 11:23] LABS: Fungal Culture & Smear See Comments
[2024-03-01 10:25] LABS: AFB Culture Result See Comments
== END 2024-01-12 13:36 | disposition home or self-care (01) ==
PROVIDERS: PCP Nurse Practitioner; Visit Provider Internal Medicine Critical Care Medicine
PROC: 0BJ08ZZ Inspection of Tracheobronchial Tree, Via Natural or Artificial Opening Endoscopic (ICD-10-PCS; CPT 31622; principal; 2024-01-12 09:30)
DX: R91.8 Other nonspecific abnormal finding of lung field; R06.02 Shortness of breath
CPT/HCPCS: 31624; 31628; 31632; 00123; 76000; 80162; 87070; 87102; 87107; 87116; 87205; 87206; 87632; 88305; 71045; 88104; 88184; 88185; 88187; J0330; J1100; J2001; J2405; J2704; J7620

== ENCOUNTER 2024-03-22 01:27 | Outpatient (CLI) | payer MEDICAID, SELFPAY ==
--- NOTE | 2024-03-22 12:52 | DI.CT_ITS ---
Exam(s) CT CHEST WO EXAM: CT CHEST WO CLINICAL HISTORY: followf/u hypersensitivity pneumonia,j67.9. TECHNIQUE: Imaging protocol: Axial computed tomography images were obtained and coronal and sagittal reformatted images were created and reviewed. Computer aided detection (CAD) was utilized. CONTRAST MATERIAL: Noncontrast COMPARISON: CT CT CHEST HIGH RESOLUTION from 07/11/[address] CHEST WO from 01/12/2024 CR XR PORTABLE CHEST AP from 01/12/2024 FINDINGS: Pulmonary parenchyma: No consolidation. No suspicious nodules. Signal interval clearing of previousl y noted bilateral ground-glass infiltrates. Minimal residual opacities. Interstitial changes: Mini a minimal linear densities at the lung bases. Emphysema: None. Tracheobronchial tree: No mucous plugging. No bronchiectasis . Pleura: No effusion or pneumothorax. Heart: The heart is not dilated. The coronary arteries show no calcifications. Aorta: Thoracic aorta non-dilated. No atherosclerotic changes. Lymph nodes: No enlarged lymph nodes. Bones: Degenerative changes are seen. No evidence of compression fracture. Upper abdomen: Unremarkable. Soft tissues: Unremarkable. IMPRESSION: Significant interval improvement with near resolution previously noted bilateral ground-glass opaciti es. RADIATION DOSE DELIVERED: 296.68mGy.cm Total DLP 296.68mGy.cm Total DLP DATA REPOSITORY: All CT scans at this facility are submitted to the National Radiology Data Registry (NRDR) Dose Index Registry (DIR) with the [employer] (ACR). RADIATION OPTIMIZATION: All CT scans at this facility use at least one of these dose optimization te chniques: automated exposure control; mA and/or kV adjustment per patient size (includes targeted exa ms where dose is matched to clinical indication); or iterative reconstruction.
== END 2024-03-22 01:47 ==
LOC: DI 01:27
PROVIDERS: PCP Nurse Practitioner; Visit Provider Physician Assistant Surgical
DX: J67.8 Hypersensitivity pneumonitis due to other organic dusts (principal); R05.9 Cough, unspecified; J84.9 Interstitial pulmonary disease, unspecified
CPT/HCPCS: 71250

== ENCOUNTER 2024-06-07 11:54 | Outpatient (CLI) | payer MEDICAID, SELFPAY ==
[2024-06-07 09:49] LABS: HGB 11.8 g/dL (11.2-15.7); MCH 29.1 pg (27.0-33.0); MCHC 33.7 % (32.0-36.0); MCV 86 fL (80-95); MPV 8.5 fL (8.0-11.0); Platelet Count 268 10^3/uL (130-400); RBC 4.06 10^6/uL (3.93-5.22); RDW 11.9 % (11.7-14.6); RDW-SD 37.8 fL; WBC 4.52 10^3/uL (4.4-10.8)
[2024-06-07 10:06] LABS: ALT 26 U/L (14-59); AST 24 U/L (15-37); Albumin 3.6 g/dL (3.4-5.0); Alkaline Phosphatase 60 U/L (46-116); Anion Gap 11.9 mmol/L (3-11); BUN 10 mg/dL (7-18); Bilirubin, Total 0.72 mg/dL (0.2-1.0); CO2 25.1 mmol/L (21.0-32.0); CREATININE 1.1 mg/dL (0.55-1.02); Calcium 9.1 mg/dL (8.5-10.1); Chloride 98 mmol/L (98-107); Estimated GFR 57.52 (mL/min/1.73m2); Glucose 112 mg/dL (74-106); Potassium 4.2 mmol/L (3.5-5.1); Sodium 135 mmol/L (136-145); Total Protein 6.8 g/dL (6.4-8.2)
[2024-06-07 10:25] LABS: Absolute Neutrophil Count 2.35 10^3/uL (1.2-6.7)
[2024-06-07 10:26] LABS: Absolute Basophil Count 0.14 10^3/uL (0.0-0.2); Absolute Eosinophil Count 0.05 10^3/uL (0.0-0.7); Absolute Lymphocyte Count 1.54 10^3/uL (1.2-3.4); Absolute Monocyte Count 0.45 10^3/uL (0.1-0.8); Atypical Lymphocytes % 2 %; Diff Comment Manual Differential; RBC Morphology Normal
[2024-06-07 10:28] LABS: TSH (W/Ref FT4) 3.87 uIU/mL (0.36-3.74); Vitamin D 25 Total 46.9 ng/mL (30-100)
[2024-06-07 10:46] LABS: FREE T4 0.81 ng/dL (0.76-1.46)
== END 2024-06-07 11:55 | disposition home or self-care (01) ==
LOC: LBO 11:54
PROVIDERS: Internal Medicine Critical Care Medicine; PCP Nurse Practitioner; Visit Provider Physician Assistant Surgical
DX: E55.9 Vitamin D deficiency, unspecified (principal); J67.9 Hypersensitivity pneumonitis due to unspecified organic dust; J84.9 Interstitial pulmonary disease, unspecified
CPT/HCPCS: 36415; 80053; 82306; 82533; 84439; 84443; 85025

== ENCOUNTER 2024-07-05 02:10 | Outpatient (CLI) | payer MEDICAID, SELFPAY ==
--- NOTE | 2024-07-05 08:35 | DI.CT_ITS ---
Exam(s) CT CHEST WO EXAM: CT CHEST WO CLINICAL HISTORY: follow up hypersensitivity pneumonia,j67.9. TECHNIQUE: Multi planar reconstructions were performed. CONTRAST MATERIAL: None COMPARISON: CT CT CHEST WO from 01/12/2024 CR XR PORTABLE CHEST AP from 01/12/[address] CHEST WO from 03/22/2024 FINDINGS: CHEST: LUNGS: There has been recurrence of bilateral predominantly lower lobe infiltrates which are similar to those which were present bilaterally on the CT scan of 01/12/2024. Predominately in the posterior and lateral basal segments of both lower lobes but also extending to involve most of the superior se gments of both lower lobes in similar fashion to previous. However, on the present study the amount of similar appearing bilateral infiltrates in the upper lobes is slightly less than was evident on CT scan of December 2023. There are again no pleural effusions. MEDIASTINUM: There is no obvious hilar nor mediastinal adenopathy. Visualized thyroid unremarkable.Ri ght thyroid nodule noted. CARDIAC: Heart size mildly prominent..No pericardial effusion. Caliber of thoracic aorta is upper no rmal. VISUALIZED UPPER ABDOMEN:No adrenal masses. No splenomegaly. Cholelithiasis incidentally noted. OSSEOUS: No significant osseous lesions.No fractures.. IMPRESSION: 1. Compared to the prior CT scans listed above there has been recurrence of the prominent relatively symmetrical bilateral infiltrates which were evident on prior CT scan of December 2023 but which had mo stly resolved on the CT scan of 03/22/2024. These infiltrates are again noted to involve the posteri or basal, lateral basal, and superior segments of both lower lobes as well as with some lesser involv ement of the upper lobes. The amount of infiltrate bilaterally is slightly less than was evident on the December [address]23 CT scan. 2. There are no associated pleural effusions nor obvious intrathoracic adenopathy. 3. Right thyroid lobe nodule incidentally noted. This can be further studied with thyroid ultrasound examination. RADIATION DOSE DELIVERED: 306.49mGy.cm Total DLP DATA REPOSITORY: All CT scans at this facility are submitted to the National Radiology Data Registry (NRDR) Dose Index Registry (DIR) with the [employer] (ACR). RADIATION OPTIMIZATION: All CT scans at this facility use at least one of these dose optimization te chniques: automated exposure control; mA and/or kV adjustment per patient size (includes targeted exa ms where dose is matched to clinical indication); or iterative reconstruction.
== END 2024-07-05 02:30 ==
LOC: DI 02:10
PROVIDERS: PCP Nurse Practitioner; Visit Provider Physician Assistant Surgical
DX: J67.9 Hypersensitivity pneumonitis due to unspecified organic dust (principal)
CPT/HCPCS: 71250

== ENCOUNTER 2024-07-16 00:45 | Outpatient (CLI) | payer MEDICAID, SELFPAY ==
[2024-07-16 16:40] LABS: Abs Immature Grans 0.02 10^3/uL (0.0-0.06); Absolute Basophil Count 0.07 10^3/uL (0.0-0.2); Absolute Eosinophil Count 0.02 10^3/uL (0.0-0.7); Absolute Lymphocyte Count 1.77 10^3/uL (1.2-3.4); Absolute Monocyte Count 0.35 10^3/uL (0.1-0.8); Absolute Neutrophil Count 2.35 10^3/uL (1.2-6.7); Basophils % 1.5 %; Eosinophils % 0.4 %; HGB 12.2 g/dL (11.2-15.7); Immature Grans % 0.4 %; Lymphocytes % 38.6 %; MCH 28.1 pg (27.0-33.0); MCV 85 fL (80-95); MPV 8.5 fL (8.0-11.0); Monocytes % 7.6 %; Neutrophils % 51.5 %; Platelet Count 206 10^3/uL (130-400); RBC 4.34 10^6/uL (3.93-5.22); RDW 12.2 % (11.7-14.6); RDW-SD 38.2 fL; WBC 4.58 10^3/uL (4.4-10.8)
[2024-07-16 17:09] LABS: ALT 24 U/L (14-59); AST 21 U/L (15-37); Albumin 3.8 g/dL (3.4-5.0); Alkaline Phosphatase 75 U/L (46-116); Anion Gap 12.2 mmol/L (3-11); BUN 17 mg/dL (7-18); Bilirubin, Total 0.53 mg/dL (0.2-1.0); CO2 22.8 mmol/L (21.0-32.0); CREATININE 1.2 mg/dL (0.55-1.02); Chloride 105 mmol/L (98-107); Estimated GFR 51.82 (mL/min/1.73m2); Glucose 108 mg/dL (74-106); Potassium 3.9 mmol/L (3.5-5.1); Sodium 140 mmol/L (136-145); Total Protein 6.9 g/dL (6.4-8.2)
== END 2024-07-16 00:46 | disposition home or self-care (01) ==
PROVIDERS: Orthopaedic Surgery Hand Surgery; PCP Nurse Practitioner; Visit Provider Nurse Practitioner
DX: Z79.624 Long term (current) use of inhibitors of nucleotide synthesis (principal)
CPT/HCPCS: 36415; 80053; 85025

== ENCOUNTER 2024-08-09 02:03 | Outpatient (CLI) | payer MEDICAID, SELFPAY ==
[2024-08-09 07:38] LABS: Abs Immature Grans 0.04 10^3/uL (0.0-0.06); Absolute Basophil Count 0.03 10^3/uL (0.0-0.2); Absolute Eosinophil Count 0.01 10^3/uL (0.0-0.7); Absolute Lymphocyte Count 3.27 10^3/uL (1.2-3.4); Absolute Monocyte Count 0.38 10^3/uL (0.1-0.8); Absolute Neutrophil Count 3.62 10^3/uL (1.2-6.7); Basophils % 0.4 %; Eosinophils % 0.1 %; HCT 34.5 % (36.0-46.0); HGB 11.5 g/dL (11.2-15.7); Immature Grans % 0.5 %; Lymphocytes % 44.5 %; MCH 27.8 pg (27.0-33.0); MCHC 33.3 % (32.0-36.0); MCV 84 fL (80-95); MPV 8.2 fL (8.0-11.0); Monocytes % 5.2 %; Neutrophils % 49.3 %; Platelet Count 228 10^3/uL (130-400); RBC 4.13 10^6/uL (3.93-5.22); RDW 13.6 % (11.7-14.6); RDW-SD 41.3 fL; WBC 7.35 10^3/uL (4.4-10.8)
[2024-08-09 07:57] LABS: ALT 52 U/L (14-59); AST 21 U/L (15-37); Albumin 3.5 g/dL (3.4-5.0); Alkaline Phosphatase 53 U/L (46-116); Anion Gap 9.7 mmol/L (3-11); BUN 19 mg/dL (7-18); Bilirubin, Total 0.6 mg/dL (0.2-1.0); CO2 28.3 mmol/L (21.0-32.0); CREATININE 1.3 mg/dL (0.55-1.02); Calcium 9.2 mg/dL (8.5-10.1); Chloride 104 mmol/L (98-107); Estimated GFR 46.78 (mL/min/1.73m2); Glucose 101 mg/dL (74-106); Potassium 3.6 mmol/L (3.5-5.1); Sodium 142 mmol/L (136-145); Total Protein 6.5 g/dL (6.4-8.2)
== END 2024-08-09 02:04 | disposition home or self-care (01) ==
PROVIDERS: PCP Nurse Practitioner; Visit Provider Student in an Organized Health Care Education/Training Program
DX: Z79.624 Long term (current) use of inhibitors of nucleotide synthesis (principal)
CPT/HCPCS: 36415; 80053; 85025

== ENCOUNTER 2024-12-21 13:36 | Outpatient (CLI) | payer MEDICAID, SELFPAY ==
--- NOTE | 2024-12-21 13:30 | DI.RAD_ITS ---
Exam(s) XR CHEST 2V PA LATERAL EXAM: XR CHEST 2V PA LATERAL CLINICAL HISTORY: Dyspnea R06.00 TECHNIQUE: 2D digital imaging was performed. Two views. COMPARISON: CR XR PORTABLE CHEST AP from 01/12/[address] CHEST WO from 07/05/2024 FINDINGS: HEART: Enlarged Aorta: Mildly tortuous. PULMONARY VASCULATURE: Normal. MEDIASTINUM: Unremarkable. LUNGS: Clear. PLEURAL SPACE: No pleural effusion or pneumothorax. BONE:Unremarkable for age. SOFT TISSUES: Unremarkable. IMPRESSION: No acute abnormality. DATA REPOSITORY: RADIATION DOSE DELIVERED:
== END 2024-12-21 13:56 ==
PROVIDERS: PCP Nurse Practitioner; Visit Provider Internal Medicine Pulmonary Disease
DX: R06.00 Dyspnea, unspecified (principal)
CPT/HCPCS: 71046

== ENCOUNTER 2025-01-03 03:26 | Outpatient (CLI) | payer MEDICAID, SELFPAY ==
--- NOTE | 2025-01-03 06:45 | DI.CT_ITS ---
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 TECHNIQUE: Imaging protocol: Axial computed tomography images were obtained and coronal and sagittal reformatted images were created and reviewed. Computer aided detection (CAD) was utilized. CONTRAST MATERIAL: Noncontrast COMPARISON: CT CT CHEST WO from 07/05/2024 CR XR CHEST 2V PA LATERAL from 12/21/2024 FINDINGS: Pulmonary parenchyma: There has been interval improvement in previously noted bilateral upper lobe infiltrates. Minimal residual ground-glass opacities. There also has been some improvement in bilateral lower lobe infiltrates, less extensive when compared with the previous exam. Minimal right middle lobe ground-glass opacities. No suspicious nodules. Interstitial changes: None. Emphysema: None. Tracheobronchial tree: No mucous plugging. No bronchiectasis . Pleura: No effusion or pneumothorax. Heart: The heart is mildly dilated. The coronary arteries show minimal calcifications. Aorta: Thoracic aorta non-dilated. Minimal atherosclerotic changes. Lymph nodes: No enlarged lymph nodes. Bones: Degenerative changes are seen. No evidence of compression fracture. Upper abdomen: Unremarkable. Soft tissues: Unremarkable. IMPRESSION: Some improvement in bilateral infiltrates. RADIATION DOSE DELIVERED: 279.93mGy.cm Total DLP 279.93mGy.cm Total DLP DATA REPOSITORY: All CT scans at this facility are submitted to the National Radiology Data Registry (NRDR) Dose Index Registry (DIR) with the [employer] (ACR). RADIATION OPTIMIZATION: All CT scans at this facility use at least one of these dose optimization techniques: automated exposure control; mA and/or kV adjustment per patient size (includes targeted exams where dose is matched to clinical indication); or iterative reconstruction.
== END 2025-01-03 03:46 ==
PROVIDERS: PCP Nurse Practitioner; Visit Provider Internal Medicine Pulmonary Disease
DX: J84.116 Cryptogenic organizing pneumonia (principal)
CPT/HCPCS: 71250

== ENCOUNTER 2025-03-08 01:56 | Outpatient (CLI) | payer MEDICAID, SELFPAY ==
--- NOTE | 2025-03-08 | DI.MAMMO_ITS ---
Exam(s) MAMMO SCREENING EXAM: MAMMO SCREENING CLINICAL HISTORY: SCREENING MAMMO Z12.39 TECHNIQUE: Bilateral full field digital CC and MLO mammographic images were obtained with 3D tomosynthesis and utilizing computer aided detection (CAD). COMPARISON: Comparison is made with prior examinations. FINDINGS: Masses/Architectural Distortion: No suspicious masses or areas of architectural distortion are present. Microcalcifications: No suspicious pleomorphic-type are seen. Skin Thickening/Nipple Retraction: None. IMPRESSION: 1. No significant interval change with no specific features of malignancy noted. 2. Unless there is more urgent need, screening mammography is recommended, as per [employer] [employer] guidelines. BI-RADS Category 1 - Negative Breast Density - Category B - There are scattered areas of fibroglandular density. Breast density Category C or D implies that the patient has dense breast tissue. Dense breast tissue can make it harder to find cancer on a mammogram. Dense breast tissue is also associated with an increased risk of breast cancer. This information about the result of the mammogram report was provided to the patient to raise their awareness. Use this report when you speak with the patient about their risks for breast cancer, which includes their family history. At that time, you may recommend additional screening tests (Ultrasound or MRI) as these tests may add significant information. A negative radiographic report should not delay biopsy if a dominant or clinically suspicious mass is present. Up to ten percent of cancers are not identified on mammography. A negative report may reinforce clinical impression. Adenosis and dense breasts may obscure an underlying neoplasm. False positive reports average 6 to 10%. Patient will receive a letter notifying them of these results.
== END 2025-03-08 02:16 ==
LOC: DI 01:56
PROVIDERS: PCP Nurse Practitioner; Visit Provider Nurse Practitioner
DX: E28.39 Other primary ovarian failure (principal); Z12.31 Encounter for screening mammogram for malignant neoplasm of breast
CPT/HCPCS: 77063; 77067

== ENCOUNTER → 2025-04-06 09:55 | Outpatient (CLI) | payer MEDICAID, SELFPAY ==
--- NOTE | 2025-04-06 10:06 | DI.RAD_ITS ---
Exam(s) XR CHEST 2V PA LATERAL EXAM: XR CHEST 2V PA LATERAL CLINICAL HISTORY: dyspnea,cryptogenic pneumonia,abn finding J84.116,R91.8,R06.00 TECHNIQUE: 2D digital imaging was performed. Two views. COMPARISON: CR XR CHEST 2V PA LATERAL from 12/21/[address] CHEST WO from 01/03/2025 FINDINGS: There is poor pulmonary inflation on the lateral view. HEART: Normal size. Aorta: Not dilated. PULMONARY VASCULATURE: Normal. MEDIASTINUM: Unremarkable. LUNGS: Patchy infiltrate noted inferior right upper lobe. Posterior bilateral lower lobe infiltrates remain present. Difficult to directly compare with prior CT. PLEURAL SPACE: No pleural effusion or pneumothorax. BONE:Unremarkable for age. SOFT TISSUES: Unremarkable. IMPRESSION: Persistent bilateral lower lobe infiltrates and right upper lobe infiltrate. DATA REPOSITORY: RADIATION DOSE DELIVERED:
== END ==
LOC: DI 09:55
PROVIDERS: PCP Nurse Practitioner; Visit Provider Internal Medicine Pulmonary Disease
DX: J84.116 Cryptogenic organizing pneumonia (principal); R91.8 Other nonspecific abnormal finding of lung field; R06.00 Dyspnea, unspecified
CPT/HCPCS: 71046

== ENCOUNTER 2025-05-02 08:13 | Emergency (ER) | payer MEDICAID, SELFPAY ==
[2025-05-02 08:39] VITALS: BP 202/179; PULSE 56; RESP 16; O2SAT 94
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
[2025-05-02 09:09] VITALS: BP 144/97; TEMP 36.9
[2025-05-02 09:14] VITALS: RESP 14
== END 2025-05-02 09:19 | disposition home or self-care (01) ==
PROVIDERS: Emergency Provider Emergency Medicine; PCP Nurse Practitioner
DX: I10 Essential (primary) hypertension (principal)
CPT/HCPCS: 99282; 99281